=== PATIENT | male | born 1955 | race Caucasian/White ===

== ENCOUNTER 2020-06-26 15:15 | Outpatient (REF) | payer OTHER, SELFPAY ==
[2020-06-26 16:59] LABS: Glucose Urine UA NEG (NEG); Leukocyte Esterase Urine TRACE (NEG); Nitrite Urine POS (NEG); Specific Gravity - Urine 1.025 (1.005-1.025); Urine Blood 1+ (NEG); Urine Ketones NEG (NEG); Urine Protein NEG (NEG-TRACE)
[2020-06-26 17:03] LABS: Appearance Urine HAZY; Color Urine YELLOW
[2020-06-26 17:11] LABS: Alanine Aminotransferase 12 U/L (0-40); Albumin Level 4.4 g/dL (3.5-5.0); Alkaline Phosphatase 83 U/L (39-117); Anion Gap 11 (12-20); Aspartate Amino Transferase 16 U/L (5-37); Bilirubin Total 1.1 mg/dL (0.0-1.0); Blood Urea Nitrogen 17 mg/dL (9-16); Calcium 8.9 mg/dL (8.4-10.2); Carbon Dioxide 30 mmol/L (22-29); Chloride 101 mmol/L (96-108); Estimated Glomerular Filt Rate > 60; Glucose Random 91 mg/dL (60-115); Potassium 3.9 mmol/l (3.3-5.1); Sodium 138 mmol/L (135-145); Total Protein 6.8 g/dL (6.5-8.0)
[2020-06-26 17:17] LABS: RBC Urine 0-2 /HPF (0)
[2020-06-26 17:18] LABS: Bacteria Urine 2+ /LPF; Squamous Epithelial Cell Urine TRACE /LPF
== END 2020-06-26 15:16 | disposition home or self-care (01) ==
LOC: HO.HMGCLDS 15:15
PROVIDERS: PCP Internal Medicine; Visit Provider Internal Medicine
DX: I87.2 Venous insufficiency (chronic) (peripheral) (principal); I10 Essential (primary) hypertension; I89.0 Lymphedema, not elsewhere classified; R30.0 Dysuria
CPT/HCPCS: 80048; 81001; 81003; 82040; 82247; 84075; 84155; 84450; 84460; 87086; 87186

== ENCOUNTER → 2020-09-01 14:15 | Outpatient (BNVA) | payer OTHER, SELFPAY | PROVIDERS: PCP Internal Medicine; Visit Provider Surgery Vascular Surgery | DX: Z76.89 Persons encountering health services in other specified circumstances (principal) ==

== ENCOUNTER 2020-09-16 12:46 | Outpatient (REF) | payer OTHER, SELFPAY ==
--- NOTE | 2020-09-16 12:49 | US_ITS ---
EXAMINATION: RIGHT and LEFT LOWER EXTREMITY VENOUS ULTRASOUND (Reflux Exam) CLINICAL INDICATION: leg pain and varicose veins. COMPARISON: None. TECHNIQUE: Color flow triplex imaging and compression Doppler was performed to evaluate both the deep and the superficial systems bilaterally. To evaluate the superficial system, the examination was performed in the upright position. Color-flow Doppler ultrasound and compression ultrasound were utilized. In addition, maneuvers were utilized to demonstrate reflux. FINDINGS: 1. DEEP VENOUS ULTRASOUND OF THE RIGHT LOWER EXTREMITY: Respiratory variation, normal compression and augmented flow are noted in the right common femoral vein as well as the right popliteal vein and there is no evidence of deep venous thrombosis at these locations. There is no evidence of reflux in the deep system in either the common femoral vein or the popliteal vein. There is no evidence of a Thomas's cyst. 2. SUPERFICIAL ULTRASOUND WITH DOPPLER OF RIGHT LOWER EXTREMITY: The right great saphenous vein at the saphenofemoral junction measures 7 mm, at the mid thigh 5 mm, nzegf-ric-pmqu 6 mm, uxlxc-szu-gvdb 4 mm, at mid calf 4 mm and at the ankle measures 4 mm. There is a 3.4 seconds reflux in the right greater saphenous vein at the mid calf. There is an accessory lateral greater saphenous vein that measures 3 mm and does not demonstrate reflux.. The right small saphenous vein measures 4 mm and shows no reflux. There are perforators in the mid thigh and calf that measure 2 mm and do not demonstrate reflux. There are varicosities in the calf that measures 3 to 4 mm and do not demonstrate reflux. 3. DEEP VENOUS ULTRASOUND OF THE LEFT LOWER EXTREMITY: Respiratory variation, normal compression and augmented flow are noted in the left common femoral vein as well as the left popliteal vein and there is no evidence of deep venous thrombosis at these locations. There is no evidence of reflux in the deep system in either the common femoral vein or the popliteal vein. . There is no evidence of a Thomas's cyst. 4. SUPERFICIAL ULTRASOUND WITH DOPPLER OF LEFT LOWER EXTREMITY: Left great saphenous vein at the saphenofemoral junction measures 7 mm, at the mid thigh 4 mm, auddd-hxy-ffwm 4 mm, injes-cig-wrry 3 mm, at mid calf for mm and at the ankle measures 3 mm. There is no reflux demonstrated in the left great saphenous vein. There is a medial accessory greater saphenous vein that measures 3 mm and does not demonstrate reflux. The left small saphenous vein measures 3-4 mm and shows no reflux. There are perforators in the calf that measures 3 to 4 mm and does not demonstrate reflux. There are varicosities in the thigh and calf measure 3 mm and do not demonstrate reflux. US/US venous duplex LE BI IMPRESSION: 1. No evidence of reflux or thrombus in the common femoral veins or popliteal veins bilaterally. 2. Right greater saphenous vein reflux in the mid calf measuring 3.4 seconds. No left greater saphenous vein reflux seen.
== END 2020-09-16 12:47 | disposition home or self-care (01) ==
LOC: HO.US 12:46
PROVIDERS: PCP Internal Medicine; Visit Provider Surgery Vascular Surgery
DX: I83.893 Varicose veins of bilateral lower extremities with other complications (principal); M79.662 Pain in left lower leg; M79.661 Pain in right lower leg
CPT/HCPCS: 93970

== ENCOUNTER → 2020-10-01 15:00 | Outpatient (BNVA) | payer OTHER, SELFPAY | PROVIDERS: PCP Internal Medicine; Visit Provider Surgery Vascular Surgery | DX: Z76.89 Persons encountering health services in other specified circumstances (principal) ==

== ENCOUNTER 2021-01-06 14:15 | Outpatient (REF) | payer OTHER, SELFPAY ==
[2021-01-06 16:45] LABS: Hemoglobin 14.2 g/dl (14.0-18.0); Mean Corpuscular HGB Conc 32.3 g/dl (31.0-36.0); Mean Corpuscular Hemoglobin 29.8 pg (27.0-33.0); Mean Corpuscular Volume 92.2 fL (80-98); Mean Platelet Volume 10.9 fL (9.4-12.4); Platelet Count 160 X10*3/uL (160-400); Red Blood Count 4.77 X10*6/uL (4.60-5.80); Red Cell Distribution Width 13.1 % (11.0-16.0); White Blood Count 4.7 X10*3/uL (4.8-10.8)
[2021-01-06 16:58] LABS: Appearance Urine CLEAR; Color Urine YELLOW; Glucose Urine UA NEG (NEG); Leukocyte Esterase Urine NEG (NEG); Nitrite Urine NEG (NEG); Urine Blood TRACE (NEG); Urine Ketones NEG (NEG); Urine Protein NEG (NEG-TRACE)
[2021-01-06 17:07] LABS: Alanine Aminotransferase 22 U/L (0-40); Albumin Level 3.9 g/dL (3.5-5.0); Alkaline Phosphatase 76 U/L (39-117); Anion Gap 15 (12-20); Aspartate Amino Transferase 25 U/L (5-37); Bilirubin Total 1.6 mg/dL (0.0-1.0); Blood Urea Nitrogen 10 mg/dL (9-16); Calcium 8.1 mg/dL (8.4-10.2); Carbon Dioxide 24 mmol/L (22-29); Chloride 104 mmol/L (96-108); Cholesterol 133 mg/dL; Estimated Glomerular Filt Rate > 60; Glucose Fasting 94 mg/dL (60-99); HDL Cholesterol 53 mg/dL; LDL Cholesterol Calculated 69 mg/dl; Potassium 3.7 mmol/L (3.3-5.1); Sodium 139 mmol/L (135-145); Total Protein 6.1 g/dL (6.5-8.0); Triglycerides 55 mg/dL
[2021-01-06 17:13] LABS: WBC Urine 0 /HPF (0-4)
== END 2021-01-06 14:16 | disposition home or self-care (01) ==
LOC: HO.HMGCLDS 14:15
PROVIDERS: PCP Internal Medicine; Visit Provider Internal Medicine
DX: Z00.00 Encounter for general adult medical examination without abnormal findings (principal); I10 Essential (primary) hypertension; I89.0 Lymphedema, not elsewhere classified
CPT/HCPCS: 36415; 80053; 80061; 81001; 85027

== ENCOUNTER 2022-04-04 13:49 | Outpatient (REF) | payer OTHER, MEDICARE, SELFPAY | END 2022-04-04 13:50 | disposition home or self-care (01) | LOC: HO.LNP 13:49 | PROVIDERS: Visit Provider Physician Assistant | DX: K61.1 Rectal abscess (principal) | CPT/HCPCS: 87071; 87205 ==

== ENCOUNTER 2022-04-18 12:35 | Outpatient (RCR) | payer OTHER, SELFPAY | END 2022-06-16 11:11 | disposition home or self-care (01) | LOC: HO.WCC 12:35 | PROVIDERS: PCP Internal Medicine; Visit Provider Physician Assistant | DX: L98.419 Non-pressure chronic ulcer of buttock with unspecified severity (principal); L30.9 Dermatitis, unspecified; I10 Essential (primary) hypertension; I73.9 Peripheral vascular disease, unspecified | CPT/HCPCS: 17250; 99212 ==

== ENCOUNTER 2022-04-28 12:24 | Outpatient (REF) | payer OTHER, SELFPAY | END 2022-04-28 12:25 | disposition home or self-care (01) | LOC: HO.LNP 12:24 | PROVIDERS: Visit Provider Internal Medicine | DX: N39.0 Urinary tract infection, site not specified (principal) | CPT/HCPCS: 87086; 87088; 87186 ==

== ENCOUNTER 2022-05-04 13:42 | Outpatient (REF) | payer OTHER, SELFPAY ==
[2022-05-04 17:12] LABS: Alanine Aminotransferase 19 U/L (0-40); Albumin Level 3.9 g/dL (3.5-5.0); Alkaline Phosphatase 78 U/L (39-117); Anion Gap 12 (12-20); Aspartate Amino Transferase 20 U/L (5-37); Bilirubin Total 1.4 mg/dL (0.0-1.0); Blood Urea Nitrogen 15 mg/dL (9-16); Calcium 8.4 mg/dL (8.4-10.2); Carbon Dioxide 29 mmol/L (22-29); Chloride 106 mmol/L (96-108); Cholesterol 142 mg/dL; Estimated Glomerular Filt Rate > 60; Glucose Fasting 104 mg/dL (60-99); HDL Cholesterol 52 mg/dL; LDL Cholesterol Calculated 79 mg/dl; Sodium 143 mmol/L (135-145); Total Protein 6.3 g/dL (6.5-8.0); Triglycerides 57 mg/dL
[2022-05-04 17:14] LABS: Appearance Urine Clear; Color Urine Yellow; Glucose Urine UA Negative (Negative); Leukocyte Esterase Urine Negative (Negative); Nitrite Urine Negative (Negative); Specific Gravity - Urine >= 1.030 (1.005-1.025); Urine Blood Small (1+) (Negative); Urine Ketones Negative (Negative); Urine Protein Negative (Neg-Trace)
[2022-05-04 17:24] LABS: TSH reflex Free T4 1.11 uIU/mL (0.32-4.0)
[2022-05-04 18:04] LABS: Hyaline Casts Urine 0-2 /LPF (0-2)
[2022-05-04 18:07] LABS: Bacteria Urine None Seen (None Seen); UACC Culture Trigger YES
== END 2022-05-04 13:43 | disposition home or self-care (01) ==
LOC: HO.HMGCLDS 13:42
PROVIDERS: PCP Internal Medicine; Visit Provider Internal Medicine
DX: E78.5 Hyperlipidemia, unspecified (principal); I10 Essential (primary) hypertension
CPT/HCPCS: 36415; 80053; 80061; 81001; 81003; 84443; 87086

== ENCOUNTER 2023-03-25 14:10 | Outpatient (REF) | payer OTHER, SELFPAY ==
[2023-03-25 15:14] LABS: Hematocrit 44.3 % (42.0-52.0); Hemoglobin 14.7 g/dl (14.0-18.0); Mean Corpuscular HGB Conc 33.2 g/dl (31.0-36.0); Mean Corpuscular Hemoglobin 30.8 pg (27.0-33.0); Mean Corpuscular Volume 92.9 fL (80.0-98.0); Mean Platelet Volume 11.3 fL (9.4-12.4); Platelet Count 163 X10*3/uL (160-400); Red Blood Count 4.77 X10*6/uL (4.60-5.80); Red Cell Distribution Width 13.1 % (11.0-16.0); White Blood Count 5.3 X10*3/uL (4.8-10.8)
[2023-03-25 15:26] LABS: Anion Gap 14 (12-20); Blood Urea Nitrogen 13 mg/dL (9-16); Carbon Dioxide 24 mmol/L (22-29); Chloride 109 mmol/L (96-108); Estimated Glomerular Filt Rate > 60; Glucose Random 101 mg/dL (60-115); Potassium 3.7 mmol/L (3.3-5.1); Sodium 143 mmol/L (135-145)
== END 2023-03-25 14:11 | disposition home or self-care (01) ==
LOC: HO.HMGCLDS 14:10
PROVIDERS: Internal Medicine; PCP Internal Medicine; Visit Provider Internal Medicine
DX: G62.9 Polyneuropathy, unspecified (principal); R19.7 Diarrhea, unspecified
CPT/HCPCS: 36415; 80048; 82607; 82746; 85027

== ENCOUNTER 2023-04-15 08:00 | Outpatient (REF) | payer OTHER, SELFPAY | END 2023-04-15 08:01 | disposition home or self-care (01) | LOC: HO.HMGCLNP 08:00 | PROVIDERS: PCP Internal Medicine; Visit Provider Internal Medicine | DX: R19.7 Diarrhea, unspecified (principal) | CPT/HCPCS: 87177; 87209 ==

== ENCOUNTER 2023-04-25 09:31 | Outpatient (AMB) | payer OTHER, SELFPAY ==
[2023-04-25 09:43] VITALS: BMI 40.0
--- NOTE | 2023-04-25 09:43 | A.OFFPC_ITS ---
Vital Signs 04/25/23 09:43 Height 6 ft Weight 295 lb BMI 40.0 Intake Visit Reasons: pre-op postate urology 05/02 Intake Note: Pt is here today for a pre op visit. Pt is having surgery on his prostate with DR. Bowens on 05/02/23. Allergies Sulfa (Sulfonamide Antibiotics) Allergy (Unknown, Verified 04/25/23 09:46) unknown paper tape Allergy (Mild, Uncoded 04/25/23 09:46) Rash Medication List - Last Reconciled 04/25/23 by Suzie Thomas MD aspirin (Adult Low Dose Aspirin) 81 mg PO DAILY atorvastatin 10 mg PO DAILY hydrochlorothiazide 12.5 mg PO QAM hydrocortisone 1% (Cortisone (hydrocortisone)) 1 appl topical BID PRN ketoconazole 2% 1 appl topical BID losartan 50 mg PO DAILY nystatin 1 appl topical BID tadalafil 5 mg PO DAILY Tobacco use date assessed: 04/25/23 Fall risk assessment: No Falls in past year Last assessed Fall Risk: 04/25/23 Dental Screening Dental Screen Date: 04/25/23 Did you have a dental visit in the last 12 months?: Yes Did you have a dental problem in the last 6 months where you did not have access to dental care?: No Was dental information given to patient?: Patient has dentist HPI pre-op postate urology 05/02 HPI Details Pt presents for preop prostate surgery. Pt c/o diarrhea for 2 months, watery up to 2 episodes a day. Patient denies any correlation of diarrhea with his diet. Denies hematochezia weight loss, abdominal pain nausea vomiting. He has been under lot of stress related to his apartment for the last few weeks. Hypertension hyperlipidemia are controlled on current medications [facility] Medical History Abnormal colonoscopy Annual physical exam Dysuria Foot pain, bilateral HTN (hypertension) Hyperlipidemia Lymphedema Obese Recurrent UTI Urethral stricture Venous insufficiency of both lower extremities Surgical History History of left hip replacement History of right hip replacement Family History Father Prostate cancer Mother HTN (hypertension) Diabetes Colon cancer Social History Housing: Apartment Alcohol intake: never Patient Tobacco Use Status: Never used Tobacco e-Cigarette/Vaping Use: Never Used service: No Current occupational status: employed Cognitive needs: No Hearing needs: No Vision needs: Yes Questionnaire Thrive Questionnaire Date Thrive assessed: 04/18/22 AUDIT C Alcohol Use Questionnaire (AUDIT-C) 1. How often do you have a drink containing alcohol?: Never 3. How often do you have six or more drinks on one occasion?: Never Total Score: 0 DARLENE-7 AMB Questionnaire DARLENE-7 Date DARLENE - 7 assessed: 04/18/22 Source: Developed by Drs. Rusty Brooks, Trish Mayorga, Puneet Reece and colleagues, with an educational keegan from [employer]. Review of Systems Const All systems reviewed & are unremarkable except as noted in HPI and below Reports no additional complaints Eyes Reports no additional complaints ENT Reports no additional complaints Card Reports no additional complaints Resp Reports no additional complaints GI Reports no additional complaints Reports no additional complaints Physical exam (Primary Care) BMI result Body Mass Index 40.0 Tobacco/Smoking Status: Tobacco use Status Tobacco use date assessed 04/25/23 04/25/23 09:47 Patient Tobacco Use Status Never used Tobacco 04/25/23 09:47 e-Cigarette/Vaping Use Never Used 04/25/23 09:43 Thrive Assessment: Date of Thrive Assessment Date Thrive assessed 04/18/22 04/25/23 09:43 Const General: no acute distress HENMT Head: Yes normal to inspection General nose exam: Normal external nose present Eyes General: appearance normal, both eyes and all related structures Neck Neck: Yes no lymphadenopathy and Yes supple Resp Effort & Inspection: normal respiratory effort Auscultation: clear to auscultation bilaterally Cardio Rhythm: regular rhythm Heart sounds: S1 normal heart sound present and S2 normal heart sound present GI Inspection: Yes normal to inspection Palpation (GI): Soft to palpation Percussion: Yes normal to percussion Auscultation: normal bowel sounds Assessment and Plan Assessment & Plan (1) Diarrhea: Code(s): R19.7 - Diarrhea, unspecified Plan: Obtain stool studies and blood work for celiac disease. Patient was advised to start taking Citrucel and probiotics. he requested referral to software trainer. He will postpone the surgery until cleared by GI (2) Hyperlipidemia: Code(s): E78.5 - Hyperlipidemia, unspecified Plan: Continue statin (3) HTN (hypertension): Code(s): I10 - Essential (primary) hypertension Plan: Continue current medications Orders: Orders Transglutaminase IgA Today R19.7 - Diarrhea, unspecified GI Panel Today R19.7 - Diarrhea, unspecified Leukocytes Stool Qualitative Today R19.7 - Diarrhea, unspecified Endomysial IgA rflx Titer Today R19.7 - Diarrhea, unspecified Immunoglobulins,IgG IgA IgM Today R19.7 - Diarrhea, unspecified CDiff Gene PCR Today R19.7 - Diarrhea, unspecified Referrals Gastroenterology Referral R19.7 - Diarrhea, unspecified Coding Level of Care Code Est Pt Level 3 (19393) Diagnoses Diarrhea R19.7 Hyperlipidemia E78.5 HTN (hypertension) I10
== END 2023-04-25 10:42 | disposition home or self-care (01) ==
PROVIDERS: PCP Internal Medicine; Visit Provider Internal Medicine
DX: R19.7 Diarrhea, unspecified (principal); E78.5 Hyperlipidemia, unspecified; I10 Essential (primary) hypertension
CPT/HCPCS: 99213

== ENCOUNTER 2023-05-02 11:02 | Outpatient (REF) | payer OTHER, SELFPAY ==
[2023-05-02 16:26] LABS: Appearance Urine Clear; Color Urine Yellow; Glucose Urine UA Negative (Negative); Leukocyte Esterase Urine Negative (Negative); Nitrite Urine Positive (Negative); PH 6.5 (5.0-9.0); UMIC TRIGGER UACC YES; Urine Blood Negative (Negative); Urine Ketones Negative (Negative); Urine Protein Negative (Neg-Trace)
[2023-05-02 16:40] LABS: Bacteria Urine None Seen (None Seen); Hyaline Casts Urine 0-2 /LPF (0-2); RBC Urine 0-2 /HPF (0-2); Squamous Epithelial Cell Urine 0-2 /HPF (0-2); UACC Culture Trigger YES; WBC Urine 0-5 /HPF (0-5)
== END 2023-05-02 11:03 | disposition home or self-care (01) ==
LOC: HO.HMGCLNP 11:02
PROVIDERS: PCP Internal Medicine; Visit Provider Internal Medicine
DX: N39.0 Urinary tract infection, site not specified (principal)
CPT/HCPCS: 81001; 87086

== ENCOUNTER 2023-05-05 10:56 | Outpatient (REF) | payer OTHER, SELFPAY ==
[2023-05-05 19:21] LABS: Leukocytes Stool Qualitative NEGATIVE (NEGATIVE)
[2023-05-06 11:56] LABS: Adenovirus F 40/41 Not Detected (Not Detect.); Astrovirus Not Detected (Not Detect.); Campylobacter Not Detected (Not Detect.); Cryptosporidium Not Detected (Not Detect.); Cyclospora cayetanensis Not Detected (Not Detect.); E. coli EAEC Not Detected (Not Detect.); E. coli EPEC Detected (Not Detect.); E. coli ETEC Not Detected (Not Detect.); E. coli STEC Not Detected (Not Detect.); Entamoeba histolytica Not Detected (Not Detect.); Giardia lamblia Not Detected (Not Detect.); Norovirus GI/GII Not Detected (Not Detect.); Plesiomonas shigelloides Not Detected (Not Detect.); Rotavirus A Not Detected (Not Detect.); Salmonella Not Detected (Not Detect.); Sapovirus Not Detected (Not Detect.); Shigella sp./EIEC Not Detected (Not Detect.); Vibrio Not Detected (Not Detect.); Vibrio Cholerae Not Detected (Not Detect.); Yersinia enterocolitica Not Detected (Not Detect.)
== END 2023-05-05 10:57 | disposition home or self-care (01) ==
LOC: HO.HMGCLNP 10:56
PROVIDERS: PCP Internal Medicine; Visit Provider Internal Medicine
DX: R19.7 Diarrhea, unspecified (principal)
CPT/HCPCS: 87507; 89055

== ENCOUNTER 2023-07-08 09:10 | Outpatient (AMB) | payer OTHER, SELFPAY ==
[2023-07-08 09:48] VITALS: BP 130/70; PULSE 78; O2SAT 95; BMI 40.8
--- NOTE | 2023-07-08 09:48 | AM.OFFWIN_ITS ---
Intake Vital Signs 07/08/23 09:48 Height 6 ft Weight 136.531 kg BMI 40.8 BP 130/70 Blood Pressure Location Lt brachial Position Sitting Pulse 78 Pulse Source Pulse Oximeter Pulse Oximetry (%) 95 Oxygen Delivery Method Room Air Intake Visit Reasons: EP, UTI? Patient Tobacco Use Status: Never used Tobacco Allergies Sulfa (Sulfonamide Antibiotics) Allergy (Unknown, Verified 07/08/23 09:49) unknown paper tape Allergy (Mild, Uncoded 07/08/23 09:49) Rash HPI HPI Comments History of Present Illness Details 0948 67-year-old male history obesity, lymphe susy, hyperlipidemia, hypertension, dysuria, venous insufficiency bilaterally presenting to the clinic for evaluation of Physical exam Likely UTI versus cystitis. Unlikely pyelonephritis, obstructing uropathy. Other differentials include BPH. No signs of sepsis Plan urine. Urine showing Educated patient on diagnosis and treatment plan, answered all question, patient verbalizes understanding. At this time patient will be discharged home, advised to return with new or worsening symptoms. Educated on worrisome signs and symptoms and when to return. At this time I feel comfortable discharge home. [facility] Medical History Foot pain, bilateral Abnormal colonoscopy Hyperlipidemia Annual physical exam Dysuria Urethral stricture Recurrent UTI Obese HTN (hypertension) Lymphedema Venous insufficiency of both lower extremities Surgical History History of left hip replacement History of right hip replacement Family History Father Prostate cancer Mother HTN (hypertension) Diabetes Colon cancer Social History Housing: Apartment Alcohol intake: never Patient Tobacco Use Status: Never used Tobacco e-Cigarette/Vaping Use: Never Used service: No Current occupational status: employed Cognitive needs: No Hearing needs: No Vision needs: Yes Review of Systems Const Details: Constitutional : No Weight loss, No Fever, No Chills, No Fatigue, No Malaise ENT/Mouth : No sore throat, No Rhinorrhea Eyes: No Eye Pain, No Swelling, No Redness Cardiovascular : No Chest Pain, No SOB, No Dyspnea on Exertion, No Orthopnea, No Edema, No Palpitations Respiratory : No Cough, No Sputum, No Wheezing Gastrointestinal : No Nausea, No Vomiting, No Diarrhea, No Constipation, No abdominal Pain, No Hematochezia, No Melena Genitourinary : + Dysuria, + Urinary Frequency, No Hematuria, Musculoskeletal : No joint pain, No Myalgias, No Joint Swelling Skin : No Skin Lesions, No rash Neuro : No Weakness, No Numbness, No Dizziness, No Headache Psych : No Anxiety/Panic, No Depression All other systems reviewed and are negative All systems reviewed & are unremarkable except as noted in HPI and below Physical Exam Vital Signs: Vital signs stable Appearance: Alert.? Oriented X3.? No acute distress.? Head: Normocephalic, atraumatic, no step-offs or deformities Eyes: Pupils equal, round and reactive to light.? ENT: Pharynx normal.? Neck: Normal inspection.? Neck supple.? CVS: Normal heart rate and rhythm.? Pulses normal.? Respiratory: No respiratory distress.? Breath sounds normal.? Abdomen: Soft and nontender.? Skin: Skin warm and dry.? Normal skin color.? Normal skin turgor.? Extremities: No lower extremity edema.? No calf ttp. 5/5 strength to bilateral upper and lower extremities Back: No midline tenderness, no C-spine tenderness, full range of motion, no CVA tenderness bilaterally Neuro: Oriented X 3.? No motor deficit.? No sensory deficit. CN 2-12 intact Coding
--- NOTE | 2023-07-08 09:48 | MHC.OFFWIV ---
Intake Vital Signs 07/08/23 09:48 Height 6 ft Weight 136.531 kg BMI 40.8 BP 130/70 Blood Pressure Location Lt brachial Position Sitting Pulse 78 Pulse Source Pulse Oximeter Pulse Oximetry (%) 95 Oxygen Delivery Method Room Air Intake Visit Reasons: EP, UTI? Intake Note: pt is here today for uti, urgency and burning upon urination Patient Tobacco Use Status: Never used Tobacco Allergies Sulfa (Sulfonamide Antibiotics) Allergy (Unknown, Verified 07/08/23 09:49) unknown paper tape Allergy (Mild, Uncoded 07/08/23 09:49) Rash Do you need a note to return to daycare/school/sports/work: No HPI HPI Comments History of Present Illness Details 0951 67-year-old male history obesity, lymphedema, hyperlipidemia, hypertension, dysuria, venous insufficiency bilaterally presenting to the clinic for evaluation of urinary frequency, urgency, dysuria ongoing for the past few days. History of urinary infections in the past. Patient denies fevers, chills, flank pain, nausea, vomiting, abdominal pain, chest pain, shortness of breath, weakness. Patient being followed by Dr. Bowens Urology and is seeing him soon to have a procedure done to recurrent UTIs Physical exam benign Likely UTI versus cystitis. Unlikely pyelonephritis, obstructing uropathy. Other differentials include BPH, kidney stone. No signs of sepsis Plan urine. Urine showing leukocyte esterases will treat for UTI Educated patient on diagnosis and treatment plan, answered all question, patient verbalizes understanding. At this time patient will be discharged home, advised to return with new or worsening symptoms. Educated on worrisome signs and symptoms and when to return. At this time I feel comfortable discharge home. [facility] Medical History Foot pain, bilateral Abnormal colonoscopy Hyperlipidemia Annual physical exam Dysuria Urethral stricture Recurrent UTI Obese HTN (hypertension) Lymphedema Venous insufficiency of both lower extremities Surgical History History of left hip replacement History of right hip replacement Family History Father Prostate cancer Mother HTN (hypertension) Diabetes Colon cancer Social History Housing: Apartment Alcohol intake: never Patient Tobacco Use Status: Never used Tobacco e-Cigarette/Vaping Use: Never Used service: No Current occupational status: employed Cognitive needs: No Hearing needs: No Vision needs: Yes Review of Systems Const Details: Constitutional : No Weight loss, No Fever, No Chills, No Fatigue, No Malaise ENT/Mouth : No sore throat, No Rhinorrhea Eyes: No Eye Pain, No Swelling, No Redness Cardiovascular : No Chest Pain, No SOB, No Dyspnea on Exertion, No Orthopnea, No Edema, No Palpitations Respiratory : No Cough, No Sputum, No Wheezing Gastrointestinal : No Nausea, No Vomiting, No Diarrhea, No Constipation, No abdominal Pain, No Hematochezia, No Melena Genitourinary : + Dysuria, + Urinary Frequency, No Hematuria, Musculoskeletal : No joint pain, No Myalgias, No Joint Swelling Skin : No Skin Lesions, No rash Neuro : No Weakness, No Numbness, No Dizziness, No Headache Psych : No Anxiety/Panic, No Depression All other systems reviewed and are negative All systems reviewed & are unremarkable except as noted in HPI and below Physical Exam Vital Signs: Last Vital Signs Pulse 78 07/08/23 09:48 BP 130/70 07/08/23 09:48 Pulse Ox 95 07/08/23 09:48 Oxygen Delivery Method Room Air 07/08/23 09:48 BMI result Body Mass Index 40.8 vss Appearance: Alert.? Oriented X3.? No acute distress.? Head: Normocephalic, atraumatic, no step-offs or deformities Eyes: Pupils equal, round and reactive to light.? CVS: Normal heart rate and rhythm.? Pulses normal.? Respiratory: No respiratory distress.? Breath sounds normal.? Abdomen: Soft and nontender.? Skin: Skin warm and dry.? Normal skin color.? Normal skin turgor.? Extremities: No lower extremity edema.? No calf ttp. 5/5 strength to bilateral upper and lower extremities Back: No CVA tenderness bilaterally Neuro: Oriented X 3.? No motor deficit.? No sensory deficit. CN 2-12 intact Assessment & Plan Assessment & Plan (1) Acute UTI: Code(s): N39.0 - Urinary tract infection, site not specified Plan Take your medications as prescribed. If you were prescribed antibiotics today, it is important that you take your medication to their entirety, do not skip any doses, do not finish them early. Follow-up with your primary care provider this week. Return to the emergency department with new or worsening symptoms. Such as fevers, chills, chest pain, shortness of breath, nausea, vomiting, dizziness, headache, vision changes, lethargy In case of emergency call 911 Coding Level of Care Code Est Pt Level 3 (58955) Diagnoses Acute UTI N39.0
== END 2023-07-08 14:56 | disposition home or self-care (01) ==
PROVIDERS: PCP Internal Medicine; Visit Provider Physician Assistant
DX: N39.0 Urinary tract infection, site not specified (principal); R30.0 Dysuria
CPT/HCPCS: 81003; 99051; 99213

== ENCOUNTER 2023-07-29 09:05 | Outpatient (AMB) | payer OTHER, SELFPAY ==
[2023-07-29 09:11] VITALS: BP 110/64; PULSE 82; TEMP 36.8; O2SAT 94; BMI 40.3
--- NOTE | 2023-07-29 09:11 | MHC.OFFWIV ---
Intake Vital Signs 07/29/23 09:11 Height 6 ft Weight 297 lb BMI 40.3 BP 110/64 Blood Pressure Location Lt brachial Position Sitting Pulse 82 Pulse Source Pulse Oximeter Temp 98.2 F Temp Source Oral Pulse Oximetry (%) 94 Oxygen Delivery Method Room Air Intake Visit Reasons: EP, urgency and burning with urination Intake Note: Pt is here today c/o urgency and burning upon urination Patient Tobacco Use Status: Never used Tobacco Allergies Sulfa (Sulfonamide Antibiotics) Allergy (Unknown, Verified 07/29/23 09:23) unknown paper tape Allergy (Mild, Uncoded 07/29/23 09:23) Rash HPI HPI Comments History of Present Illness Details This is a 67-year-old male with a past medical history of BPH and urethral stricture currently followed by Dr. Bowens in urology presenting for evaluation of dysuria and urinary frequency that he has had over the past 3 days. Patient states he was seen approximately 1 month ago for similar symptoms, was prescribed Cipro which Initiallyresolved his symptoms however his symptoms recurred approximately 3 days ago. Patient denies having any fevers, chills, penile discharge, back pain or flank pain. [facility] Medical History Foot pain, bilateral Abnormal colonoscopy Hyperlipidemia Annual physical exam Dysuria Urethral stricture Recurrent UTI Obese HTN (hypertension) Lymphedema Venous insufficiency of both lower extremities Surgical History History of left hip replacement History of right hip replacement Family History Father Prostate cancer Mother HTN (hypertension) Diabetes Colon cancer Social History Housing: Apartment Alcohol intake: never Patient Tobacco Use Status: Never used Tobacco e-Cigarette/Vaping Use: Never Used service: No Current occupational status: employed Cognitive needs: No Hearing needs: No Vision needs: Yes Review of Systems Const All systems reviewed & are unremarkable except as noted in HPI and below Denies chills, Denies fever(s) and Denies night sweats GI Reports no additional complaints Reports no additional complaints, Denies hematuria, Denies oliguria, Reports difficulty urinating, Reports dysuria and Reports urinary frequency Physical Exam Vital Signs: BMI result Body Mass Index 40.3 patient is afebrile Const General: cooperative, comfortable, no acute distress and well developed Nutritional Appearance: overweight Orientation/consciousness: patient oriented x3 Limitations: no limitations Cardio Rate: regular rate Rhythm: regular rhythm GI Palpation (GI): Soft to palpation, nontender, no guarding and Other GI palpation findings present (no CVAT bilaterally, no suprapubic tenderness or guarding, no flank pain) Auscultation: normal bowel sounds Skin General skin exam: no rashes or lesions noted Neuro General: patient oriented x3 Psych Appearance: grossly normal Mental Status: mental status grossly normal Insight: Good insight present (Psych) Judgement: Good judgement present (Psych) Results AMB Urinalysis, Automated UA Leukoctes 125 Sanya/uL Last Edit by Erica Brown CMA on 07/29/23 09:22 UA Nitrite Negative Last Edit by Erica Brown CMA on 07/29/23 09:22 UA Urobilinogen 0.2 mg/dL Last Edit by Erica Brown CMA on 07/29/23 09:22 UA Protein 0 mg/dL Last Edit by Erica Brown CMA on 07/29/23 09:22 UA pH 6.0 Last Edit by Erica Brown CMA on 07/29/23 09:22 UA Blood 25 Arron/uL Last Edit by Erica Brown CMA on 07/29/23 09:22 UA Specific [place] 1.025 Last Edit by Erica Brown CMA on 07/29/23 09:22 UA Ketone Negative Last Edit by Erica Brown CMA on 07/29/23 09:22 UA Bilirubin 0 mg/dL Last Edit by Erica Brown CMA on 07/29/23 09:22 UA Glucose 0 mg/dL Last Edit by Erica Brown CMA on 07/29/23 09:22 Results Reviewed Results Reviewed: urinalysis reviewed with patient +leukocytes +hematuria Assessment & Plan Assessment & Plan (1) Urinary frequency: Code(s): R35.0 - Frequency of micturition Plan: Antibiotic therapy will be prescribed and a urine culture will be sent for further evaluation of his recurrent symptoms. Orders: Orders AMB Urinalysis Automated Today Z13.9 - Encounter for screening, unspecified Urine Culture Today R35.0 - Frequency of micturition Medications: New cephalexin 500 mg PO Q8H 21 caps 0RF Coding Level of Care Code Est Pt Level 3 (46278) Diagnoses Urinary frequency R35.0 Time Spent (min) 20
== END 2023-07-29 09:41 | disposition home or self-care (01) ==
PROVIDERS: PCP Internal Medicine; Visit Provider Physician Assistant
DX: R35.0 Frequency of micturition (principal)
CPT/HCPCS: 81003; 99051; 99213

== ENCOUNTER 2023-07-29 09:39 | Outpatient (REF) | payer OTHER, SELFPAY | END 2023-07-29 09:40 | disposition home or self-care (01) | LOC: HO.LAB 09:39 | PROVIDERS: Visit Provider Physician Assistant | DX: R35.0 Frequency of micturition (principal) | CPT/HCPCS: 87086; 87088; 87186 ==

== ENCOUNTER 2023-09-02 09:06 | Outpatient (AMB) | payer OTHER, SELFPAY ==
--- NOTE | 2023-09-02 09:35 | MHC.OFFWIV ---
Intake Vital Signs 09/02/23 09:39 Weight 131.542 kg BP 118/72 Blood Pressure Location Rt brachial Position Sitting Pulse 68 Pulse Source Pulse Oximeter Temp 97.8 F Temp Source Oral Pulse Oximetry (%) 98 Oxygen Delivery Method Room Air Intake Visit Reasons: EP sore throat congestion Intake Note: Patient here for sore throat, runny nose and slight cough and has yellow mucus that has been present since last monday. Patient Tobacco Use Status: Never used Tobacco Allergies Sulfa (Sulfonamide Antibiotics) Allergy (Unknown, Verified 09/02/23 09:38) unknown paper tape Allergy (Mild, Uncoded 09/02/23 09:38) Rash Do you need a note to return to daycare/school/sports/work: No HPI HPI Comments History of Present Illness Details 68-year-old male history of recurrent UTIs, hypertension, obesity, lymphedema presents to the clinic for sick visit patient reporting fatigue, malaise, myalgias, rhinorrhea, productive cough of yellow/thick sputum, sore throat that started last Monday and has not been improving. 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 Denies chest pain, shortness of breath, fevers, chills, changes in voice, difficulty breathing, nausea, vomiting, abdominal pain. Physical examination benign History and physical exam concerning for bronchitis due to length of symptoms versus viral illness versus flu versus COVID versus RSV. Unlikely pulmonary embolism, ACS, dissection, retropharyngeal abscess, peritonsillar abscess, epiglottitis or threat airway Plan at this time antibiotics, prednisone and inhaler. Educated patient on diagnosis and treatment plan, answered all question, patient verbalizes understanding. At this time patient will be discharged home, advised to return with new or worsening symptoms. Educated on worrisome signs and symptoms and when to return. At this time I feel comfortable discharge home. [facility], [facility] Medical History Foot pain, bilateral Abnormal colonoscopy Hyperlipidemia Annual physical exam Dysuria Urethral stricture Recurrent UTI Obese HTN (hypertension) Lymphedema Venous insufficiency of both lower extremities Surgical History History of left hip replacement History of right hip replacement Family History Father Prostate cancer Mother HTN (hypertension) Diabetes Colon cancer Social History Housing: Apartment Alcohol intake: never Patient Tobacco Use Status: Never used Tobacco e-Cigarette/Vaping Use: Never Used service: No Current occupational status: employed Cognitive needs: No Hearing needs: No Vision needs: Yes Review of Systems Const Details: Constitutional : No Weight loss, No Fever, No Chills, + Fatigue, + Malaise ENT/Mouth : +No sore throat, + Rhinorrhea Eyes: No Eye Pain, No Swelling, No Redness Cardiovascular : No Chest Pain, No SOB, No Dyspnea on Exertion, No Orthopnea, No Edema, No Palpitations Respiratory : + Cough, +Sputum, No Wheezing Gastrointestinal : No Nausea, No Vomiting, No Diarrhea, No Constipation, No abdominal Pain, No Hematochezia, No Melena Genitourinary : No Dysuria, No Urinary Frequency, No Hematuria, Musculoskeletal : No joint pain, No Myalgias, No Joint Swelling Skin : No Skin Lesions, No rash Neuro : No Weakness, No Numbness, No Dizziness, No Headache Psych : No Anxiety/Panic, No Depression Heme/Lymph: No Bruising, No Bleeding,No Lymphadenopathy Endocrine : No Polyuria, No Polydipsia All other systems reviewed and are negative All systems reviewed & are unremarkable except as noted in HPI and below Physical Exam Vital Signs: Last Vital Signs Temp 97.8 F 09/02/23 09:39 Pulse 68 09/02/23 09:39 BP 118/72 09/02/23 09:39 Pulse Ox 98 09/02/23 09:39 Oxygen Delivery Method Room Air 09/02/23 09:39 Vital signs stable Appearance: Alert.? Oriented X3.? No acute distress.? Head: Normocephalic, atraumatic, no step-offs or deformities Eyes: Pupils equal, round and reactive to light.? ENT: Pharynx normal.? Neck: Normal inspection.? Neck supple.? CVS: Normal heart rate and rhythm.? Pulses normal.? Respiratory: No respiratory distress.? Breath sounds normal.? Abdomen: Soft and nontender.? Skin: Skin warm and dry.? Normal skin color.? Normal skin turgor.? Extremities: No lower extremity edema.? No calf ttp. 5/5 strength to bilateral upper and lower extremities Back: No midline tenderness, no C-spine tenderness, full range of motion, no CVA tenderness bilaterally Neuro: Oriented X 3.? No motor deficit.? No sensory deficit. CN 2-12 intact Assessment & Plan Assessment & Plan (1) Bronchitis: Code(s): J40 - Bronchitis, not specified as acute or chronic Plan Take your medications as prescribed. If you were prescribed antibiotics today, it is important that you take your medication to their entirety, do not skip any doses, do not finish them early. Follow-up with your primary care provider this week. Return to the emergency department with new or worsening symptoms. Such as fevers, chills, chest pain, shortness of breath, nausea, vomiting, dizziness, headache, vision changes, lethargy In case of emergency call 911 Orders: Orders SARS-CoV2/FLU/RSV Today B34.9 - Viral infection, unspecified Medications: New albuterol sulfate 90 mcg/actuation 2 puffs inhalation Q6H PRN 6.7 grams 0RF shortness of breath or wheezing doxycycline hyclate 100 mg PO BID 7 days 14 caps 0RF prednisone 20 mg PO DAILY 5 days 5 tabs 0RF Coding Level of Care Code Est Pt Level 3 (99333) Diagnoses Bronchitis J40
[2023-09-02 09:39] VITALS: BP 118/72; PULSE 68; TEMP 36.6; O2SAT 98
== END 2023-09-02 11:08 | disposition home or self-care (01) ==
PROVIDERS: PCP Internal Medicine; Visit Provider Physician Assistant
DX: J40 Bronchitis, not specified as acute or chronic (principal); J02.9 Acute pharyngitis, unspecified
CPT/HCPCS: 87880; 99051; 99213

== ENCOUNTER 2023-09-02 10:52 | Outpatient (REF) | payer OTHER, SELFPAY ==
[2023-09-02 11:44] LABS: Influenza A PCR NEGATIVE (Negative); Influenza B PCR NEGATIVE (Negative); Resp Syncy Virus RNA Qual PCR NEGATIVE (Negative); SARS COV2 PCR INHOUSE NEGATIVE (Negative)
== END 2023-09-02 10:53 | disposition home or self-care (01) ==
LOC: HO.HMGCLNP 10:52
PROVIDERS: Visit Provider Physician Assistant
DX: Z11.52 Encounter for screening for COVID-19 (principal); B34.9 Viral infection, unspecified; Z20.822 Contact with and (suspected) exposure to COVID-19
CPT/HCPCS: 0241U

== ENCOUNTER 2023-09-15 08:12 | Outpatient (AMB) | payer OTHER, SELFPAY ==
[2023-09-15 08:29] VITALS: BP 130/72; PULSE 84; TEMP 36.8; O2SAT 95; BMI 39.9
--- NOTE | 2023-09-15 08:29 | AM.OFFWIN_ITS ---
Intake Vital Signs 09/15/23 08:29 Height 6 ft Weight 294 lb 6 oz BMI 39.9 BP 130/72 Blood Pressure Location Lt brachial Position Sitting Pulse 84 Pulse Source Pulse Oximeter Temp 98.3 F Temp Source Oral Pulse Oximetry (%) 95 Oxygen Delivery Method Room Air Intake Visit Reasons: EP Cough, Stuffy/Runny nose (masked) Intake Note: pt is here for c/o cough, stuffy/runny nose Patient Tobacco Use Status: Never used Tobacco Allergies Sulfa (Sulfonamide Antibiotics) Allergy (Unknown, Verified 09/15/23 08:30) unknown paper tape Allergy (Mild, Uncoded 09/02/23 09:38) Rash Do you need a note to return to daycare/school/sports/work: Yes HPI HPI Comments History of Present Illness Details He presents for cold symptoms Was seen 09/02 and negative flu, rsv and covid as well as strep Given doxy and prednisone Took both of those completely and felt better Started again 3 days ago congestion, st, swollen glands in neck, cough with no phlegm He tried OTC Clorcidin without relief He denies fever or chills He said fatigue without body aches PFSH Medical History Foot pain, bilateral Abnormal colonoscopy Hyperlipidemia Annual physical exam Dysuria Urethral stricture Recurrent UTI Obese HTN (hypertension) Lymphedema Venous insufficiency of both lower extremities Surgical History History of left hip replacement History of right hip replacement Family History Father Prostate cancer Mother HTN (hypertension) Diabetes Colon cancer Social History Housing: Apartment Alcohol intake: never Patient Tobacco Use Status: Never used Tobacco e-Cigarette/Vaping Use: Never Used service: No Current occupational status: employed Cognitive needs: No Hearing needs: No Vision needs: Yes Review of Systems Const Denies body aches, Denies chills, Reports fatigue and Denies fever(s) Eyes Denies blurry vision ENT Denies dizziness, Denies otalgia, Reports nasal discharge, Denies sore throat (sore lymph nodes) and Denies throat swelling Card Denies chest pain, Denies syncope, Denies rapid heart rate and Denies dyspnea Resp Reports cough and Denies dyspnea Musc Denies myalgias Neuro Denies dizziness, Denies syncope and Denies focal weakness Endo Reports fatigue Aller/Immun Denies throat swelling Physical Exam Vital Signs: Last Vital Signs Temp 98.3 F 09/15/23 08:29 Pulse 84 09/15/23 08:29 BP 130/72 09/15/23 08:29 Pulse Ox 95 09/15/23 08:29 Oxygen Delivery Method Room Air 09/15/23 08:29 BMI result Body Mass Index 39.9 General: Non-toxic, NAD. Speaking full sentences. Skin: Warm dry throughout Eye: EOMI HENT: Airway patent. Uvula midline. No pharyngeal erythema or edema. 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 Bilateral canals clear. TM non-erythematous, non-bulging. No TM perforation or hemotympanum noted. Respiratory: CTA bilaterally. No wheezes, rales or rhonchi Cardiac: RRR. No murmur MSK: Full ROM extremities. Neurology: A/O. No aphasia or facial droop. Gait without abnormality Psych: Good mood and affect Assessment & Plan Assessment & Plan (1) Cough: Code(s): R05.9 - Cough, unspecified Qualifiers: Cough type: acute Qualified Code(s): R05.1 - Acute cough Plan: Patient seen and evaluated. Lungs CTA; no rales Discussed importance of covid test and he will get one [facility] Will call if + ana Santana for couhg F/U with PCP Worsening symptoms discussed to go to ED Patient gave verbal understanding and had no additional questions or concerns at time of discharge All questions answered Orders: Orders BinaxNOW Covid-19 Ag Today R05.9 - Cough, unspecified Medications: New benzonatate 200 mg PO BID-TID PRN 14 caps 0RF cough R05.9 - Cough, unspecified Coding Level of Care Code Est Pt Level 3 (44544) Diagnoses Acute cough R05.1 Cough type: acute
== END 2023-09-15 09:00 | disposition home or self-care (01) ==
PROVIDERS: PCP Internal Medicine; Visit Provider Physician Assistant
DX: R05.1 Acute cough (principal)
CPT/HCPCS: 99213

== ENCOUNTER 2023-09-15 08:51 | Outpatient (REF) | payer OTHER, SELFPAY ==
[2023-09-15 09:15] LABS: Binax Internal Control QC Valid; Binax Now Covid-19 Ag Negative (Negative); Binax Performed by: PAULP
== END 2023-09-15 08:52 | disposition home or self-care (01) ==
LOC: HO.HMGCLDS 08:51
PROVIDERS: PCP Internal Medicine; Visit Provider Physician Assistant
DX: Z11.52 Encounter for screening for COVID-19 (principal); R05.9 Cough, unspecified
CPT/HCPCS: 87811

== ENCOUNTER 2023-09-26 07:56 | Outpatient (AMB) | payer OTHER, SELFPAY ==
--- NOTE | 2023-09-26 08:03 | MHC.PC.OV ---
Vital Signs 09/26/23 08:04 Weight 297 lb BP 122/68 Blood Pressure Location Rt brachial Position Sitting Pulse 82 Pulse Source Pulse Oximeter Pulse Oximetry (%) 97 Oxygen Delivery Method Room Air Intake Visit Reasons: cough/cold ok per Intake Note: Patient here for cough, chills, fatigue and headaches for about 1 month on and off. denies any fevers Allergies Sulfa (Sulfonamide Antibiotics) Allergy (Unknown, Verified 09/26/23 08:05) unknown paper tape Allergy (Mild, Uncoded 09/26/23 08:05) Rash Medication List - Last Reconciled 09/26/23 by Suzie Thomas MD albuterol sulfate 90 mcg/actuation 2 puffs inhalation Q6H PRN aspirin (Adult Low Dose Aspirin) 81 mg PO DAILY atorvastatin 10 mg PO DAILY azithromycin For 250 mg dose pack: take 500 mg today (day 1), then 250 mg for 4 days (days 2-5) PO benzonatate 200 mg PO BID-TID PRN famotidine (Pepcid) 40 mg PO BEDTIME hydrochlorothiazide 12.5 mg PO QAM hydrocortisone 1% (Cortisone (hydrocortisone)) 1 appl topical BID PRN ketoconazole 2% 1 appl topical BID losartan 50 mg PO DAILY nystatin 1 appl topical BID prednisone 20 mg PO DAILY 5 days tadalafil 5 mg PO DAILY triamcinolone acetonide 0.1% 1 appl topical DAILY Tobacco use date assessed: 09/26/23 Fall risk assessment: No Falls in past year Last assessed Fall Risk: 09/26/23 Dental Screening Dental Screen Date: 09/26/23 Did you have a dental visit in the last 12 months?: No Did you have a dental problem in the last 6 months where you did not have access to dental care?: No Was dental information given to patient?: Patient has dentist HPI cough/cold ok per HPI Details Pt presents c/o dry cough for 1 month, worse at night. Patient denies pleurisy fever chills night sweats but reports feeling tired. He was seen in urgent care 1 month ago treated with doxycycline and prednisone taper with temporary improvement of his symptoms. Patient denies GERD symptoms but reports chronic abdominal bloating with negative GI workup negative. [facility] Medical History Foot pain, bilateral Abnormal colonoscopy Hyperlipidemia Annual physical exam Dysuria Urethral stricture Recurrent UTI Obese HTN (hypertension) Lymphedema Venous insufficiency of both lower extremities Surgical History History of left hip replacement History of right hip replacement Family History Father Prostate cancer Mother HTN (hypertension) Diabetes Colon cancer Social History Housing: Apartment Alcohol intake: never Patient Tobacco Use Status: Never used Tobacco e-Cigarette/Vaping Use: Never Used service: No Current occupational status: employed Cognitive needs: No Hearing needs: No Vision needs: Yes Questionnaire Thrive Questionnaire Date Thrive assessed: 04/18/22 DARLENE-7 AMB Questionnaire DARLENE-7 Date DARLENE - 7 assessed: 04/18/22 Source: Developed by Drs. Rusty Brooks, Trish Mayorga, Puneet Reece and colleagues, with an educational keegan from [employer]. Review of Systems Const All systems reviewed & are unremarkable except as noted in HPI and below Reports no additional complaints Eyes Reports no additional complaints ENT Reports no additional complaints Card Reports no additional complaints Resp Reports no additional complaints GI Reports no additional complaints Reports no additional complaints Physical exam (Primary Care) Vital Signs: Last Vital Signs Pulse 82 09/26/23 08:04 BP 122/68 09/26/23 08:04 Pulse Ox 97 09/26/23 08:04 Oxygen Delivery Method Room Air 09/26/23 08:04 Tobacco/Smoking Status: Tobacco use Status Tobacco use date assessed 09/26/23 09/26/23 08:08 Patient Tobacco Use Status Never used Tobacco 09/26/23 08:03 e-Cigarette/Vaping Use Never Used 09/26/23 08:03 Thrive Assessment: Date of Thrive Assessment Date Thrive assessed 04/18/22 09/26/23 08:03 Const General: no acute distress HENMT Mouth: Normal oral and palatal mucosa present Neck Neck: Yes supple Resp Effort & Inspection: normal respiratory effort Auscultation: rhonchi right lower Cardio Rhythm: regular rhythm Heart sounds: S1 normal heart sound present and S2 normal heart sound present Assessment and Plan Assessment & Plan (1) Cough: Code(s): R05.9 - Cough, unspecified Qualifiers: Cough type: acute Qualified Code(s): R05.1 - Acute cough Plan: For persistent cough chest x-ray will be obtained Z-Dony and prednisone 20 mg for 5 days are prescribed and Pepcid 40 mg q.h.s. will be started. (2) HTN (hypertension): Code(s): I10 - Essential (primary) hypertension Plan: Continue current medications Medications: New famotidine (Pepcid) 40 mg PO BEDTIME 30 tabs 0RF azithromycin For 250 mg dose pack: take 500 mg today (day 1), then 250 mg for 4 days (days 2-5) PO 6 tabs 0RF prednisone 20 mg PO DAILY 5 days 5 tabs 0RF Refilled benzonatate 200 mg PO BID-TID PRN 14 caps 0RF cough R05.9 - Cough, unspecified Coding Level of Care Code Est Pt Level 3 (94630) Diagnoses Acute cough R05.1 Cough type: acute HTN (hypertension) I10
[2023-09-26 08:04] VITALS: BP 122/68; PULSE 82; O2SAT 97
== END 2023-09-26 09:00 | disposition home or self-care (01) ==
LOC: HO.HMGC 07:56
PROVIDERS: PCP Internal Medicine; Visit Provider Internal Medicine
DX: R05.1 Acute cough (principal); I10 Essential (primary) hypertension
CPT/HCPCS: 99213

== ENCOUNTER 2023-09-26 08:26 | Outpatient (REF) | payer OTHER, SELFPAY ==
--- NOTE | ~2023-09-26 | XR_ITS ---
EXAMINATION: XR CHEST CLINICAL INFORMATION: Cough, unspecified COMPARISON: None available. TECHNIQUE: 2 views of the chest were obtained. FINDINGS: No significant abnormality is noted involving the heart, lungs, mediastinum, bony thorax or soft tissues. The stomach is distended with air. Air is projected over the right upper quadrant, possibly within a dilated loop of colon. XR/XR chest 2V IMPRESSION: No acute cardiopulmonary disease. Suggestion of dilatation of bowel in the abdomen. KUB could be obtained for further evaluation.
== END 2023-09-26 08:27 | disposition home or self-care (01) ==
LOC: HO.HMGCX 08:26
PROVIDERS: PCP Internal Medicine; Visit Provider Internal Medicine
DX: R05.9 Cough, unspecified (principal)
CPT/HCPCS: 71046

== ENCOUNTER 2023-10-02 08:48 | Outpatient (AMB) | payer OTHER, SELFPAY ==
[2023-10-02 09:07] VITALS: BP 132/70; PULSE 71; TEMP 36.3; O2SAT 96; BMI 40.1
--- NOTE | 2023-10-02 09:07 | MHC.OFFWIV ---
Intake Vital Signs 10/02/23 09:07 Height 6 ft Weight 296 lb BMI 40.1 BP 132/70 Blood Pressure Location Lt brachial Position Sitting Pulse 71 Pulse Source Pulse Oximeter Temp 97.4 F Temp Source Temporal Artery Scan Pulse Oximetry (%) 96 Oxygen Delivery Method Room Air Intake Visit Reasons: EP cough 3 wks [id number] Intake Note: pt is here today for cough for 3 weeks Patient Tobacco Use Status: Never used Tobacco Allergies Sulfa (Sulfonamide Antibiotics) Allergy (Unknown, Verified 10/02/23 09:07) unknown paper tape Allergy (Mild, Uncoded 09/26/23 08:05) Rash Do you need a note to return to daycare/school/sports/work: No HPI HPI Comments History of Present Illness Details Patient presents to the walkin today for complaints of cough for last 3 weeks He has been evaluated at walk in previously and last week he saw pcp. Has taken abx X 2 full courses, most recent zpak prescribed 1 week ago. He has also been prescribed prednisone and tessalhayden lara States cough is a little better after recent visit with pcp but now he feels like the cough has changed from dry to having some clear mucous I want something to help bring it up Denies fevers, chest pain, shortness of breath, palpitations or worsening peripheral edema. [facility] Medical History Foot pain, bilateral Abnormal colonoscopy Hyperlipidemia Annual physical exam Dysuria Urethral stricture Recurrent UTI Obese HTN (hypertension) Lymphedema Venous insufficiency of both lower extremities Surgical History History of left hip replacement History of right hip replacement Family History Father Prostate cancer Mother HTN (hypertension) Diabetes Colon cancer Social History Housing: Apartment Alcohol intake: never Patient Tobacco Use Status: Never used Tobacco e-Cigarette/Vaping Use: Never Used service: No Current occupational status: employed Cognitive needs: No Hearing needs: No Vision needs: Yes Review of Systems Const All systems reviewed & are unremarkable except as noted in HPI and below Physical Exam Vital Signs: Last Vital Signs Temp 97.4 F 10/02/23 09:07 Pulse 71 10/02/23 09:07 BP 132/70 10/02/23 09:07 Pulse Ox 96 10/02/23 09:07 Oxygen Delivery Method Room Air 10/02/23 09:07 BMI result Body Mass Index 40.1 General: awake, alert, oriented. Answers questions appropriately. Fully engaged in examination. Skin: warm, dry, intact. HEENT: Normocephalic. Hearing intact. no lymphadenopathy Cardiac: External chest normal in appearance. bilateral peripheral edema Respiratory: LSCTAB. Resp eval and non-labored. Abdomen: without gross distension. MS: No obvious swelling or deformities. Neurological: Oriented to person, place, time and situation. Thought process intact. No gait abnormalities appreciated. Psychiatric: Appropriate mood and affect. Good judgment and insight. Results Reviewed Results Reviewed: 09/26/23 XR/XR chest 2V FINDINGS: No significant abnormality is noted involving the heart, lungs, mediastinum, bony thorax or soft tissues. The stomach is distended with air. Air is projected over the right upper quadrant, possibly within a dilated loop of colon. IMPRESSION: No acute cardiopulmonary disease. Suggestion of dilatation of bowel in the abdomen. KUB could be obtained for further evaluation. Assessment & Plan Assessment & Plan (1) Cough: Code(s): R05.9 - Cough, unspecified Qualifiers: Cough type: acute Qualified Code(s): R05.1 - Acute cough Plan Patient presented today for persistent cough 6days ago started azithromycin, prednisone and tessalon perles with some improvement in his symptoms Requesting expectorant to assist with bringing up the phlegm. Patient aware that this will exacerbate his cough, he still wants something to help break up the mucous and help cough it up. All questions and concerns answered, patient agrees with plan Follow up with pcp or return to walk in for any concerns. Medications: New guaifenesin 200 mg PO TID PRN 21 tabs 0RF cough Coding Level of Care Code Est Pt Level 4 (30748) Diagnoses Acute cough R05.1 Cough type: acute
== END 2023-10-02 09:50 | disposition home or self-care (01) ==
PROVIDERS: PCP Internal Medicine; Visit Provider Registered Nurse Emergency
DX: R05.1 Acute cough (principal)
CPT/HCPCS: 99213

== ENCOUNTER 2023-11-07 11:16 | Outpatient (AMB) | payer OTHER, SELFPAY ==
[2023-11-07 12:05] VITALS: BP 118/76; PULSE 65; O2SAT 97; BMI 38.0
--- NOTE | 2023-11-07 12:05 | A.OFFPC_ITS ---
Vital Signs 11/07/23 12:05 Height 6 ft Weight 280 lb BMI 38.0 BP 118/76 Blood Pressure Location Lt brachial Position Sitting Pulse 65 Pulse Source Pulse Oximeter Pulse Oximetry (%) 97 Oxygen Delivery Method Room Air Intake Visit Reasons: PE Intake Note: Pt is here today for PE. Allergies Sulfa (Sulfonamide Antibiotics) Allergy (Unknown, Verified 11/07/23 12:05) unknown paper tape Allergy (Mild, Uncoded 11/07/23 12:05) Rash Tobacco use date assessed: 11/07/23 Fall risk assessment: No Falls in past year Last assessed Fall Risk: 11/07/23 Dental Screening Dental Screen Date: 11/07/23 Did you have a dental visit in the last 12 months?: Yes Did you have a dental problem in the last 6 months where you did not have access to dental care?: No Was dental information given to patient?: Patient has dentist HPI PE HPI Details Patient presents for physical. He complains of increased urinary frequency and dysuria for 2 days. Patient denies fever chills abdominal pain. [facility] Medical History Foot pain, bilateral Abnormal colonoscopy Hyperlipidemia Annual physical exam Dysuria Urethral stricture Recurrent UTI Obese HTN (hypertension) Lymphedema Venous insufficiency of both lower extremities Surgical History History of left hip replacement History of right hip replacement Family History Father Prostate cancer Mother HTN (hypertension) Diabetes Colon cancer Social History Housing: Apartment Alcohol intake: never Patient Tobacco Use Status: Never used Tobacco e-Cigarette/Vaping Use: Never Used service: No Current occupational status: employed Cognitive needs: No Hearing needs: No Vision needs: Yes Questionnaire PHQ-9 Over the last 2 weeks, how often have you been bothered by any of the following problems? 1. Little interest or pleasure in doing things: not at all 2. Feeling down, depressed, or hopeless: not at all 3. Trouble falling or staying asleep, or sleeping too much: not at all 4. Feeling tired or having little energy: not at all 5. Poor appetite or overeating: not at all 6. Feeling bad about yourself - or that you are a failure or have let yourself or your family down: not at all 7. Trouble concentrating on things, such as reading the newspaper or watching television: not at all 8. Moving or speaking so slowly that other people could have noticed. Or the opposite - being so fidgety or restless that you have been moving around a lot more than usual: not at all 9. Thoughts that you would be better off or of hurting yourself in some way: not at all Total score: 0 Depression Screening Interpretation: Negative Depression Screening Done: Yes Source: Developed by Drs. Rusty Brooks, Trish Mayorga, Puneet Reece and colleagues, with an educational keegan from [employer]. Thrive Questionnaire Date Thrive assessed: 11/07/23 I am a: Patient What is your living situation today?: I have a steady place to live Within the past 12 months, did the food you bought not last and you didn't have the money to get more?: Never true Within the past 12 months, did you worry whether your food would run out before you got money to buy more?: Never true Do you have trouble paying for medicines?: No Do you have trouble getting transportation to medical appointments?: No Do you have trouble paying your heating and electricity bill?: No Do you have trouble taking care of your child, family member or friend?: No Do you have trouble with day-to-day activities such as bathing, preparing meals, shopping, managing finances, etc.?: No Are you currently unemployed and looking for a job?: No Are you interested in more education?: No Please select the resources that you would like help with: None Currently or been in a relationship where the following occur: no concerns reported THRIVE Score: 0 AUDIT C Alcohol Use Questionnaire (AUDIT-C) 1. How often do you have a drink containing alcohol?: Never 3. How often do you have six or more drinks on one occasion?: Never Total Score: 0 DARLENE-7 AMB Questionnaire DARLENE-7 Date DARLENE - 7 assessed: 11/07/23 Feeling nervous, anxious, or on edge: 0 = Not at all Not being able to stop or control worryin = Not at all Worrying too much about different things: 0 = Not at all Trouble relaxin = Not at all Being so restless that it is hard to sit still: 0 = Not at all Becoming easily annoyed or irritable: 0 = Not at all Feeling afraid as if something awful might happen: 0 = Not at all Total DARLENE-7 score (0-4 normal; 5-9 mild; 10-14 moderate; 15-21 severe): 0 Source: Developed by Drs. Rusty Brooks, Trish Mayorga, Puneet Reece and colleagues, with an educational keegan from [employer]. Review of Systems Const All systems reviewed & are unremarkable except as noted in HPI and below Reports no additional complaints Eyes Reports no additional complaints ENT Reports no additional complaints Card Reports no additional complaints Resp Reports no additional complaints GI Reports no additional complaints Reports no additional complaints Physical exam (Primary Care) Vital Signs: Last Vital Signs Pulse 65 11/07/23 12:05 BP 118/76 11/07/23 12:05 Pulse Ox 97 11/07/23 12:05 Oxygen Delivery Method Room Air 11/07/23 12:05 BMI result Body Mass Index 38.0 Tobacco/Smoking Status: Tobacco use Status Tobacco use date assessed 11/07/23 11/07/23 12:11 Patient Tobacco Use Status Never used Tobacco 11/07/23 12:11 e-Cigarette/Vaping Use Never Used 11/07/23 12:11 PHQ-9: PHQ-9 Score PHQ-9: Total score 0 11/07/23 12:25 Depression Screening Interpretation: Negative Thrive Assessment: Date of Thrive Assessment Date Thrive assessed 11/07/23 11/07/23 12:25 Currently or been in a relationship where the following occur: no concerns reported Const General: no acute distress HENMT Head: Yes normal to inspection Ears: hearing grossly normal bilaterally Face and sinus: Yes normal facial exam Throat: Yes posterior oropharynx normal Eyes General: appearance normal, both eyes and all related structures Neck Neck: Yes no lymphadenopathy and Yes supple Resp Effort & Inspection: normal respiratory effort Auscultation: clear to auscultation bilaterally Cardio Rhythm: regular rhythm Heart sounds: S1 normal heart sound present and S2 normal heart sound present GI Inspection: Yes normal to inspection Palpation (GI): Soft to palpation Percussion: Yes normal to percussion Auscultation: normal bowel sounds Results AMB Urinalysis, Automated UA Leukoctes 0 Sanya/uL Last Edit by HARIKA Eisenberg on 11/07/23 12:23 UA Nitrite Negative Last Edit by Claire Norwood [facility] on 11/07/23 12:23 UA Urobilinogen 0.2 mg/dL Last Edit by Claire Norwood Ross on 11/07/23 12: 23 UA Protein 15 mg/dL Last Edit by Claire Norwood [facility] on 11/07/23 12:23 +- Claire Norwood 11/07/23 12:23 UA pH 6.0 Last Edit by Claire Norwood Ross on 11/07/23 12:23 UA Blood 0 Arron/uL Last Edit by Claire Norwood Ross on 11/07/23 12:23 UA Specific [place] 1.025 Last Edit by Claire Norwood Ross on 11/07/23 12 :23 UA Ketone Negative Last Edit by Claire Norwood [facility] on 11/07/23 12:23 UA Bilirubin 0 mg/dL Last Edit by Claire Norwood Ross on 11/07/23 12:23 UA Glucose 0 mg/dL Last Edit by Claire Norwood [facility] on 11/07/23 12:23 Results Reviewed Results Reviewed: Laboratory Last Values Urine pH (Auto) 6.0 11/07/23 12:22 Specific [place] (Auto) 1.025 11/07/23 12:22 Urine Protein (Auto) 15 mg/dL 11/07/23 12:22 Glucose (UA)(Auto) 0 mg/dL 11/07/23 12:22 Urine Ketones (Auto) Negative 11/07/23 12:22 Urine Blood (Auto) 0 Arron/uL 11/07/23 12:22 Urine Nitrite (Auto) Negative 11/07/23 12:22 Urine Bilirubin (Auto) 0 mg/dL 11/07/23 12:22 Urine Urobilinogen (Auto) 0.2 mg/dL 11/07/23 12:22 Leukocyte Esterase (Auto) 0 Sanya/uL 11/07/23 12:22 Assessment and Plan Assessment & Plan (1) HTN (hypertension): Code(s): I10 - Essential (primary) hypertension Plan: Continue losartan and hydrochlorothiazide (2) Venous insufficiency of both lower extremities: Comment: Chronic lymphedema, follow-up with vascular surgeon Code(s): I87.2 - Venous insufficiency (chronic) (peripheral) (3) Hyperlipidemia: Code(s): E78.5 - Hyperlipidemia, unspecified Plan: Continue atorvastatin (4) Annual physical exam: Code(s): Z00.00 - Encounter for general adult medical examination without abnormal findings Plan: Well-balanced diet regular physical activity and weight loss discussed with the patient. He is up-to-date with colonoscopy. Follow-up in 6 months (5) Recurrent UTI: Code(s): N39.0 - Urinary tract infection, site not specified Plan: For recurrent UTIs patient follows up with [facility]. Macrobid as prescribed today for dysuria pending urine culture Orders: Orders AMB Urinalysis Automated Today Z13.9 - Encounter for screening, unspecified Complete Blood Count Auto Diff Today E78.5 - Hyperlipidemia, unspecified, I10 - Essential (primary) hypertension, I87.2 - Venous insufficiency (chronic) (peripheral), N39.0 - Urinary tract infection, site not specified, Z00.00 - Encounter for general adult medical examination without abnormal findings TSH reflex Free T4 Today E66.9 - Obesity, unspecified Comprehensive [facility] Panel Fast Today E78.5 - Hyperlipidemia, unspecified, I10 - Essential (primary) hypertension, I87.2 - Venous insufficiency (chronic) (peripheral), N39.0 - Urinary tract infection, site not specified, Z00.00 - Encounter for general adult medical examination without abnormal findings Lipid Panel Today E78.5 - Hyperlipidemia, unspecified, I10 - Essential (primary) hypertension, I87.2 - Venous insufficiency (chronic) (peripheral), N39.0 - Urinary tract infection, site not specified, Z00.00 - Encounter for general adult medical examination without abnormal findings Medications: New nitrofurantoin monohyd/m-cryst 100 mg (Macrobid) must administer with a meal/food 100 mg PO Q12H 7 days 14 caps 0RF Coding Level of Care Code Est Pt Prev Care >65y(39074) Diagnoses HTN (hypertension) I10 Venous insufficiency of both lower extremities I87.2 Hyperlipidemia E78.5 Annual physical exam Z00.00 Recurrent UTI N39.0
== END 2023-11-07 12:44 | disposition home or self-care (01) ==
PROVIDERS: PCP Internal Medicine; Visit Provider Internal Medicine
DX: Z00.00 Encounter for general adult medical examination without abnormal findings (principal); I10 Essential (primary) hypertension; I87.2 Venous insufficiency (chronic) (peripheral); E78.5 Hyperlipidemia, unspecified; N39.0 Urinary tract infection, site not specified
CPT/HCPCS: 81003; 99397

== ENCOUNTER 2023-11-07 12:45 | Outpatient (REF) | payer OTHER, SELFPAY ==
[2023-11-07 16:15] LABS: MANUAL DIFF FLAG NO
[2023-11-07 16:23] LABS: Basophils Absolute Auto 0.1 X10*3/uL (0.0-0.2); Basophils Percent Auto 1.2 % (0-2); Eosinophils Absolute Auto 0.2 X10*3/uL (0.0-0.4); Eosinophils Percent Auto 3.2 % (0-4); Hematocrit 49.2 % (42.0-52.0); Hemoglobin 15.9 g/dl (14.0-18.0); Imm Gran Abs Auto 0.02 X10*3/uL (0.00-0.03); Imm Gran Pct Auto 0.3 % (0.0-0.4); Lymphocytes Absolute Auto 1.3 X10*3/uL (1.2-4.9); Lymphocytes Percent Auto 20.9 % (20-40); Mean Corpuscular HGB Conc 32.3 g/dl (31.0-36.0); Mean Corpuscular Hemoglobin 30.6 pg (27.0-33.0); Mean Corpuscular Volume 94.8 fL (80.0-98.0); Mean Platelet Volume 12.2 fL (9.4-12.4); Monocytes Absolute Auto 0.6 X10*3/uL (0.1-1.2); Monocytes Percent Auto 9.5 % (2-11); Neutrophils Absolute Auto 3.9 x10*3/uL (2.0-8.3); Neutrophils Percent Auto 64.9 % (45-73); Platelet Count 149 X10*3/uL (160-400); Red Blood Count 5.19 X10*6/uL (4.60-5.80); Red Cell Distribution Width 13.9 % (11.0-16.0)
[2023-11-07 16:35] LABS: Alanine Aminotransferase 21 U/L (0-40); Albumin Level 4.1 g/dL (3.5-5.0); Alkaline Phosphatase 75 U/L (39-117); Anion Gap 10 (12-20); Aspartate Amino Transferase 21 U/L (5-37); Bilirubin Total 1.3 mg/dL (0.0-1.0); Blood Urea Nitrogen 14 mg/dL (9-16); Calcium 8.9 mg/dL (8.4-10.2); Carbon Dioxide 30 mmol/L (22-29); Chloride 107 mmol/L (96-108); Cholesterol 120 mg/dL (<200); Estimated Glomerular Filt Rate > 60; Glucose Fasting 98 mg/dL (60-99); HDL Cholesterol 57 mg/dL (>40); LDL Cholesterol Calculated 56 mg/dL (<100); Potassium 3.6 mmol/L (3.3-5.1); Sodium 143 mmol/L (135-145); Total Protein 6.7 g/dL (6.5-8.0); Triglycerides 39 mg/dL (<150)
[2023-11-07 16:54] LABS: TSH reflex Free T4 1.38 uIU/mL (0.32-4.0)
== END 2023-11-07 12:46 | disposition home or self-care (01) ==
LOC: HO.HMGCLDS 12:45
PROVIDERS: PCP Internal Medicine; Visit Provider Internal Medicine
DX: Z00.00 Encounter for general adult medical examination without abnormal findings (principal); E66.9 Obesity, unspecified; I10 Essential (primary) hypertension; I87.2 Venous insufficiency (chronic) (peripheral); E78.5 Hyperlipidemia, unspecified; N39.0 Urinary tract infection, site not specified
CPT/HCPCS: 36415; 80053; 80061; 84443; 85025

== ENCOUNTER 2023-11-07 15:41 | Outpatient (REF) | payer OTHER, SELFPAY | END 2023-11-07 15:42 | disposition home or self-care (01) | LOC: HO.LAB 15:41 | PROVIDERS: Visit Provider Internal Medicine | DX: R35.0 Frequency of micturition (principal); N39.0 Urinary tract infection, site not specified | CPT/HCPCS: 87086; 87088; 87186 ==

== ENCOUNTER 2024-04-06 09:04 | Outpatient (AMB) | payer OTHER, SELFPAY ==
[2024-04-06 09:07] VITALS: BP 114/64; PULSE 81; TEMP 36.9; O2SAT 93; BMI 41.6
--- NOTE | 2024-04-06 09:07 | AM.OFFWIN_ITS ---
Intake Vital Signs 04/06/24 09:07 Height 6 ft Weight 307 lb BMI 41.6 BP 114/64 Blood Pressure Location Rt brachial Position Sitting Pulse 81 Pulse Source Pulse Oximeter Temp 98.5 F Temp Source Oral Pulse Oximetry (%) 93 Oxygen Delivery Method Room Air Intake Visit Reasons: EP cough stuffy nose Intake Note: Pt is here today c/o cough and stuffy nose x3days Patient Tobacco Use Status: Never used Tobacco Allergies Sulfa (Sulfonamide Antibiotics) Allergy (Unknown, Verified 04/06/24 09:14) unknown paper tape Allergy (Mild, Uncoded 04/06/24 09:09) Rash Medication List - Last Reconciled 04/06/24 by Katherine Anderson, [employer]LECT[employer] aspirin (Adult Low Dose Aspirin) 81 mg PO DAILY atorvastatin 10 mg PO DAILY hydrochlorothiazide 12.5 mg PO QAM losartan 50 mg PO DAILY nystatin 1 appl topical BID tadalafil 5 mg PO DAILY triamcinolone acetonide 0.1% 1 appl topical DAILY HPI HPI Comments History of Present Illness Details 68-year-old male here today with chief c omplaints of a dry cough and runny nose. Reports that his symptoms started about 3 days ago. 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 He also wonders if there is any component of allergies as he recently was exposed to dust. He did try [id number] allergy medications x1 yesterday. Also admits a very mild sore throat. Awake alert NAD Sclera and conjunctiva clear bilat Nares scant discharge left, turbinates within normal limits, no sinus tenderness with palpation bilat Unable to see TM bilat due to cerumen MMM, pharynx WNL RRR LS CTAB Plan: Supportive care. Tessalon and Flonase. Okay to continue to use [id number]-[id number] antihistamines. If worsening of symptoms, or no resolution in 10 days advised to return to the office. This note is constructed using voice recognition software. While every effort has been made to ensure accuracy in human resources hr representative, still errors may have been included Sometimes, these errors may affect the content or meaning of the given sentence . [facility] Medical History Foot pain, bilateral Abnormal colonoscopy Hyperlipidemia Annual physical exam Dysuria Urethral stricture Recurrent UTI Obese HTN (hypertension) Lymphedema Venous insufficiency of both lower extremities Surgical History History of left hip replacement History of right hip replacement Family History Father Prostate cancer Mother HTN (hypertension) Diabetes Colon cancer Social History Housing: Apartment Alcohol intake: never Patient Tobacco Use Status: Never used Tobacco e-Cigarette/Vaping Use: Never Used service: No Current occupational status: employed Cognitive needs: No Hearing needs: No Vision needs: Yes Physical Exam Vital Signs: Last Vital Signs Temp 98.5 F 04/06/24 09:07 Pulse 81 04/06/24 09:07 BP 114/64 04/06/24 09:07 Pulse Ox 93 04/06/24 09:07 Oxygen Delivery Method Room Air 04/06/24 09:07 BMI result Body Mass Index 41.6 Assessment & Plan Assessment & Plan (1) Viral respiratory illness: Code(s): J98.8 - Other specified respiratory disorders; B97.89 - Other viral agents as the cause of diseases classified elsewhere Plan: . Medications: New fluticasone propionate 50 mcg/actuation administer into each nostril 1 spray intranasal BID 16 grams 0RF benzonatate 100 mg PO TID 10 days PRN 30 caps 1RF cough Coding Level of Care Code Est Pt Level 3 (71468) Diagnoses Viral respiratory illness J98.8; B97.89
== END 2024-04-06 09:54 | disposition home or self-care (01) ==
PROVIDERS: PCP Internal Medicine; Visit Provider Nurse Practitioner Family
DX: J98.8 Other specified respiratory disorders (principal); B97.89 Other viral agents as the cause of diseases classified elsewhere
CPT/HCPCS: 99213

== ENCOUNTER 2024-04-09 13:35 | Outpatient (AMB) | payer OTHER, SELFPAY ==
[2024-04-09 13:37] VITALS: BP 140/76; PULSE 78; TEMP 36.8; O2SAT 97; BMI 41.6
--- NOTE | 2024-04-09 13:37 | AM.OFFWIN_ITS ---
Intake Vital Signs 04/09/24 13:37 Height 6 ft Weight 307 lb BMI 41.6 BP 140/76 H Blood Pressure Location Lt brachial Position Sitting Pulse 78 Pulse Source Pulse Oximeter Temp 98.3 F Temp Source Oral Pulse Oximetry (%) 97 Oxygen Delivery Method Room Air Intake Visit Reasons: EP Mucus/?infection Intake Note: pt is here for mucus and possible infection Patient Tobacco Use Status: Never used Tobacco Allergies Sulfa (Sulfonamide Antibiotics) Allergy (Unknown, Verified 04/09/24 13:37) unknown paper tape Allergy (Mild, Uncoded 04/06/24 09:09) Rash Do you need a note to return to daycare/school/sports/work: Yes HPI HPI Comments History of Present Illness Details Patient is a 68yo M who presents for cough No hx of sthma of COPD Cough since 04/03 Was seen on 04/06 and diagnosed with URI Given nasal spray and tessalon Pt has been taking without resolution of his cough States chest tightness, wheeze and minimal sputum production When he is able to produce sputum it is discolored No fever or chills No sinus pressure, ear pain or ST PFSH Medical History Foot pain, bilateral Abnormal colonoscopy Hyperlipidemia Annual physical exam Dysuria Urethral stricture Recurrent UTI Obese HTN (hypertension) Lymphedema Venous insufficiency of both lower extremities Surgical History History of left hip replacement History of right hip replacement Family History Father Prostate cancer Mother HTN (hypertension) Diabetes Colon cancer Social History Housing: Apartment Alcohol intake: never Patient Tobacco Use Status: Never used Tobacco e-Cigarette/Vaping Use: Never Used service: No Current occupational status: employed Cognitive needs: No Hearing needs: No Vision needs: Yes Review of Systems Const Denies chills and Denies fever(s) ENT Denies otalgia, Reports nasal congestion, Denies sinus pressure and Denies sore throat Card Denies chest pain Resp Reports change in phlegm color, Reports cough and Reports wheezing Musc Denies myalgias Aller/Immun Reports wheezing Physical Exam Vital Signs: Last Vital Signs Temp 98.3 F 04/09/24 13:37 Pulse 78 04/09/24 13:37 BP 140/76 H 04/09/24 13:37 Pulse Ox 97 04/09/24 13:37 Oxygen Delivery Method Room Air 04/09/24 13:37 BMI result Body Mass Index 41.6 General: Non-toxic, NAD. Speaking full sentences. Skin: Warm dry throughout Eye: EOMI HENT: Airway patent. Uvula midline. No pharyngeal erythema or edema. No MANAGER LOSS PREVENTION. Bilateral canals clear. TM non-erythematous, non-bulging. No TM perforation or hemotympanum noted. Respiratory: + wheezinf bilaterlly with decreased at bases. No accessory muscle use Cardiac: RRR. No murmur MSK: Full ROM extremities. Neurology: A/O. No aphasia or facial droop. Psych: Good mood and affect Assessment & Plan Assessment & Plan (1) Wheezing: Code(s): R06.2 - Wheezing Plan: Patient seen and evaluated. O2 improved from last visit Discussed with pt it seems consistent with URI still but he would benfit from prednisone We discussed side effects fo prednisone and how to take Azithromycin to pharmacy incase fevers occur or he has no improvement with prednisone. Patient gave verbal understanding and had no additional questions or concerns at time of discharge All questions answered Medications: New prednisone 40 mg (2 x 20 mg) PO DAILY 4 days 8 tabs 0RF azithromycin 2 pills day one. Then 1 pill daily until complete 250 mg PO DAILY 6 days 6 tabs 0RF Coding Level of Care Code Est Pt Level 3 (39276) Diagnoses Wheezing R06.2
== END 2024-04-09 14:20 | disposition home or self-care (01) ==
PROVIDERS: PCP Internal Medicine; Visit Provider Physician Assistant
DX: R06.2 Wheezing (principal)
CPT/HCPCS: 99213

== ENCOUNTER 2024-04-15 13:36 | Outpatient (AMB) | payer OTHER, SELFPAY ==
--- NOTE | 2024-04-15 14:39 | MHC.OFFWIV ---
Intake Vital Signs 04/15/24 14:41 Height 6 ft Weight 302 lb BMI 41.0 BP 134/70 Blood Pressure Location Lt brachial Position Sitting Pulse 66 Pulse Source Pulse Oximeter Temp 98.7 F Temp Source Oral Pulse Oximetry (%) 95 Oxygen Delivery Method Room Air Intake Visit Reasons: Dry Cough/chest tightness Intake Note: pt here c/o dry cough and chest tightness. Started 2 weeks ago Patient Tobacco Use Status: Never used Tobacco Allergies Sulfa (Sulfonamide Antibiotics) Allergy (Unknown, Verified 04/15/24 14:40) unknown paper tape Allergy (Mild, Uncoded 04/15/24 14:40) Rash HPI Dry Cough/chest tightness HPI Details This note is constructed using voice recognition software. While every effort has been made to ensure accuracy, automotive shop foreman errors may have been included. The patient is a 68 year old male who presents to the clinic today with dry cough and chest tightness. He has been seen x2 at the walk-in clinic for URI. He has been treated symptomatically, however has not resolve. At his last visit he was prescribed prednisone, and also prescribed azithromycin which she was advised to start if he does not have improvement with the prednisone. He had not started that. He reports that the symptoms have been for over 2 weeks, and have involved cough and chest tightness, has not had any fever or chills. He does report that he is having wheezing. He has never used an inhaler. [facility] Medical History Foot pain, bilateral Abnormal colonoscopy Hyperlipidemia Annual physical exam Dysuria Urethral stricture Recurrent UTI Obese HTN (hypertension) Lymphedema Venous insufficiency of both lower extremities Surgical History History of left hip replacement History of right hip replacement Family History Father Prostate cancer Mother HTN (hypertension) Diabetes Colon cancer Social History Housing: Apartment Alcohol intake: never Patient Tobacco Use Status: Never used Tobacco e-Cigarette/Vaping Use: Never Used service: No Current occupational status: employed Cognitive needs: No Hearing needs: No Vision needs: Yes Review of Systems Const All systems reviewed & are unremarkable except as noted in HPI and below Physical Exam Vital Signs: Last Vital Signs Temp 98.7 F 04/15/24 14:41 Pulse 66 04/15/24 14:41 BP 134/70 04/15/24 14:41 Pulse Ox 95 04/15/24 14:41 Oxygen Delivery Method Room Air 04/15/24 14:41 BMI result Body Mass Index 41.0 Const General: cooperative, healthy appearing, comfortable and no acute distress Orientation/consciousness: patient oriented x3 Limitations: no limitations HEENT Head: Yes normal to inspection Ears: hearing grossly normal bilaterally, external ears normal and TM's normal bilaterally General nose exam: Normal external nose present, Normal nares present and No nasal discharge present Face and sinus: Yes normal facial exam and Yes sinuses nontender Mouth: Normal oral and palatal mucosa present and moist mucous membranes Throat: Yes posterior oropharynx normal, Yes tonsils normal and Yes uvula midline Eyes General: appearance normal, both eyes and all related structures Neck Neck: Yes normal visual inspection Resp Effort & Inspection: normal respiratory effort, able to speak in complete sentences, Actively coughing, no respiratory distress, not tachypneic, no tripod positioning and no use of accessory muscles Auscultation: clear to auscultation bilaterally Cardio Jugular venous distension: no JVD Rate: regular rate Rhythm: regular rhythm Heart sounds: S1 normal heart sound present, S2 normal heart sound present, no click, no gallops, no murmurs and no rubs Skin General skin exam: no rashes or lesions noted, elasticity normal and turgor normal Neuro General: patient oriented x3 Extrem General: Yes normal to inspection and Yes no clubbing, cyanosis or edema Assessment & Plan Assessment & Plan (1) URI (upper respiratory infection): Code(s): J06.9 - Acute upper respiratory infection, unspecified Qualifiers: URI type: unspecified URI Qualified Code(s): J06.9 - Acute upper respiratory infection, unspecified Plan: Supportive measures encouraged and reviewed. Deferred viral testing due to timeline since symptom onset. Given that patient has not had improvement on the prednisone as previously discussed with him I did advise him to take the azithromycin that had been prescribed. We will also obtain a chest x-ray today to rule out pneumonia, at which I would plan to add a secondary antibiotic. Advised patient to follow up with worsening symptoms including dyspnea at rest. Wet read of x-ray reflecting large airspace in the base of lung, we will await official radiology read as etiology is unclear this time, however this was present in x-ray on September. (2) Wheezing: Code(s): R06.2 - Wheezing Plan: Albuterol inhaler ordered p.r.n.. Reviewed with patient use a of this medication. Plan See above for full details and plan. Orders: Orders XR chest 2V Today J06.9 - Acute upper respiratory infection, unspecified, R06.2 - Wheezing Medications: New albuterol sulfate 90 mcg/actuation 1 to 2 puffs inhaled 4 times a day PRN; 6.7 grams 0RF shortness of breath or wheezing Coding Level of Care Code Est Pt Level 4 (69289) Diagnoses Upper respiratory tract infection, unspecified type J06.9 URI type: unspecified URI Wheezing R06.2
[2024-04-15 14:41] VITALS: BP 134/70; PULSE 66; TEMP 37.1; O2SAT 95; BMI 41.0
== END 2024-04-15 15:03 | disposition home or self-care (01) ==
PROVIDERS: PCP Internal Medicine; Visit Provider Registered Nurse
DX: J06.9 Acute upper respiratory infection, unspecified (principal); R06.2 Wheezing
CPT/HCPCS: 99214

== ENCOUNTER 2024-04-15 14:47 | Outpatient (REF) | payer OTHER, SELFPAY | END 2024-04-15 14:48 | disposition home or self-care (01) | LOC: HO.LNP 14:47 | PROVIDERS: Visit Provider Registered Nurse | DX: Z13.89 Encounter for screening for other disorder (principal) ==

== ENCOUNTER 2024-04-15 15:01 | Outpatient (REF) | payer OTHER, SELFPAY ==
--- NOTE | ~2024-04-15 | XR_ITS ---
EXAMINATION: XR CHEST CLINICAL INFORMATION: Wheezing. COMPARISON: 09/26/2023 TECHNIQUE: 2 views of the chest were obtained. FINDINGS: Low lung volumes. No focal consolidation. No pleural effusion. Cardiac silhouette is unchanged. No significant change in lucency beneath the hemidiaphragms. Gaseous distention of the colon. XR/XR chest 2V IMPRESSION: No significant change in lucency beneath the hemidiaphragms. Further cross-sectional imaging may be considered. Findings were reviewed and discussed with Chinyere Dumont at 3:45 PM on 04/15/2024.
== END 2024-04-15 15:02 | disposition home or self-care (01) ==
LOC: HO.HMGCX 15:01
PROVIDERS: PCP Internal Medicine; Visit Provider Registered Nurse
DX: R06.2 Wheezing (principal); J06.9 Acute upper respiratory infection, unspecified
CPT/HCPCS: 71046

== ENCOUNTER 2024-04-19 13:09 | Outpatient (AMB) | payer OTHER, SELFPAY ==
[2024-04-19 13:12] VITALS: BP 122/66; PULSE 69; O2SAT 97; BMI 40.3
--- NOTE | 2024-04-19 13:12 | A.OFFPC_ITS ---
Vital Signs 04/19/24 13:12 Height 6 ft Weight 297 lb BMI 40.3 BP 122/66 Blood Pressure Location Rt brachial Position Sitting Pulse 69 Pulse Source Pulse Oximeter Pulse Oximetry (%) 97 Oxygen Delivery Method Room Air Intake Visit Reasons: check up Intake Note: Pt is here today for a follow up after a walk in visit. Allergies Sulfa (Sulfonamide Antibiotics) Allergy (Unknown, Verified 04/19/24 13:14) unknown paper tape Allergy (Mild, Uncoded 04/19/24 13:14) Rash Medication List - Last Reconciled 04/19/24 by Suzie Thomas MD albuterol sulfate 90 mcg/actuation 1 to 2 puffs inhaled 4 times a day PRN; aspirin (Adult Low Dose Aspirin) 81 mg PO DAILY atorvastatin 10 mg PO DAILY fluticasone propionate 50 mcg/actuation 1 spray intranasal BID hydrochlorothiazide 12.5 mg PO QAM losartan 50 mg PO DAILY nystatin 1 appl topical BID tadalafil 5 mg PO DAILY triamcinolone acetonide 0.1% 1 appl topical DAILY Tobacco use date assessed: 04/19/24 Fall risk assessment: No Falls in past year Last assessed Fall Risk: 04/19/24 Dental Screening Dental Screen Date: 11/07/23 HPI check up HPI Details Patient presents for the follow-up of urgent care visit for URI. He is feeling better. Patient had a chest x-ray which showed lucency beneath the hemidiaphragm unchanged comparing to chest x-ray in September. Patient reports having chronic bloating and increase flatulence for a few years, intermittent diarrhea small amount up to 3 times a day. He denies nausea vomiting abdominal pain hematochezia melena. Patient had a hernia repair in the past and developed episode of small-bowel obstruction after hip surgery. Patient has been eating well-balanced diet. He has been established with GI and has a colonoscopy scheduled next month. [facility] Medical History Foot pain, bilateral Abnormal colonoscopy Hyperlipidemia Annual physical exam Dysuria Urethral stricture Recurrent UTI Obese HTN (hypertension) Lymphedema Venous insufficiency of both lower extremities Surgical History History of left hip replacement History of right hip replacement Family History Father Prostate cancer Mother HTN (hypertension) Diabetes Colon cancer Social History Housing: Apartment Alcohol intake: never Patient Tobacco Use Status: Never used Tobacco e-Cigarette/Vaping Use: Never Used service: No Current occupational status: employed Cognitive needs: No Hearing needs: No Vision needs: Yes Questionnaire PHQ-9 Over the last 2 weeks, how often have you been bothered by any of the following problems? 1. Little interest or pleasure in doing things: not at all 2. Feeling down, depressed, or hopeless: not at all 3. Trouble falling or staying asleep, or sleeping too much: not at all 4. Feeling tired or having little energy: not at all 5. Poor appetite or overeating: not at all 6. Feeling bad about yourself - or that you are a failure or have let yourself or your family down: not at all 7. Trouble concentrating on things, such as reading the newspaper or watching television: not at all 8. Moving or speaking so slowly that other people could have noticed. Or the opposite - being so fidgety or restless that you have been moving around a lot more than usual: not at all 9. Thoughts that you would be better off or of hurting yourself in some way: not at all Total score: 0 Depression Screening Interpretation: Negative Depression Screening Done: Yes Source: Developed by Drs. Rusty Brooks, Trish Mayorga, Puneet Reeec and colleagues, with an educational keegan from [employer]. Thrive Questionnaire Date Thrive assessed: 04/19/24 I am a: Patient What is your living situation today?: I have a steady place to live Within the past 12 months, did the food you bought not last and you didn't have the money to get more?: Never true Within the past 12 months, did you worry whether your food would run out before you got money to buy more?: Never true Do you have trouble paying for medicines?: No Do you have trouble getting transportation to medical appointments?: No Do you have trouble paying your heating and electricity bill?: No Do you have trouble taking care of your child, family member or friend?: No Do you have trouble with day-to-day activities such as bathing, preparing meals, shopping, managing finances, etc.?: No Are you currently unemployed and looking for a job?: No Are you interested in more education?: No Please select the resources that you would like help with: Housing/Skilled Nursing Currently or been in a relationship where the following occur: No concerns reported THRIVE Score: 0 AUDIT C Alcohol Use Questionnaire (AUDIT-C) 1. How often do you have a drink containing alcohol?: Never Total Score: 0 DARLENE-7 AMB Questionnaire DARLENE-7 Date DARLENE - 7 assessed: 04/19/24 Feeling nervous, anxious, or on edge: 0 = Not at all Not being able to stop or control worryin = Not at all Worrying too much about different things: 1 = Several days Trouble relaxin = Not at all Being so restless that it is hard to sit still: 0 = Not at all Becoming easily annoyed or irritable: 0 = Not at all Feeling afraid as if something awful might happen: 0 = Not at all Total DARLENE-7 score (0-4 normal; 5-9 mild; 10-14 moderate; 15-21 severe): 1 Source: Developed by Drs. Rusty Brooks, Trish Mayorga, Puneet Reece and colleagues, with an educational keegan from [employer]. Review of Systems Const All systems reviewed & are unremarkable except as noted in HPI and below ENT Reports no additional complaints Card Reports no additional complaints Resp Reports no additional complaints GI Reports no additional complaints Physical exam (Primary Care) Vital Signs: Last Vital Signs Pulse 69 04/19/24 13:12 BP 122/66 04/19/24 13:12 Pulse Ox 97 04/19/24 13:12 Oxygen Delivery Method Room Air 04/19/24 13:12 BMI result Body Mass Index 40.3 Tobacco/Smoking Status: Tobacco use Status Tobacco use date assessed 04/19/24 04/19/24 13:16 Patient Tobacco Use Status Never used Tobacco 04/19/24 13:16 e-Cigarette/Vaping Use Never Used 04/19/24 13:16 PHQ-9: PHQ-9 Score PHQ-9: Total score 0 04/19/24 13:16 Depression Screening Interpretation: Negative Thrive Assessment: Date of Thrive Assessment Date Thrive assessed 04/19/24 04/19/24 13:16 Currently or been in a relationship where the following occur: No concerns reported Const General: no acute distress Eyes General: appearance normal, both eyes and all related structures Neck Neck: Yes supple Resp Effort & Inspection: normal respiratory effort Auscultation: clear to auscultation bilaterally Cardio Rhythm: regular rhythm Heart sounds: S1 normal heart sound present and S2 normal heart sound present GI Inspection: Yes distended and Yes obesity Palpation (GI): Soft to palpation, nontender and No hepatosplenomegaly present Percussion: Yes normal to percussion Auscultation: normal bowel sounds Assessment and Plan Assessment & Plan (1) SBO (small bowel obstruction): Code(s): K56.609 - Unspecified intestinal obstruction, unspecified as to partial versus complete obstruction Plan: Check abdominal x-ray for partial SBO, patient was advised to increase fiber intake and physical activity he will follow-up with GI for colonoscopy (2) HTN (hypertension): Code(s): I10 - Essential (primary) hypertension Plan: Continue current medication check basic metabolic panel, patient was advised to increase potassium rich foods to keep K at around 4 Orders: Orders XR abdomen w decubitus Today K56.609 - Unspecified intestinal obstruction, unspecified as to partial versus complete obstruction Basic Metabolic Panel Today I10 - Essential (primary) hypertension Coding Level of Care Code Est Pt Level 3 (58623) Diagnoses SBO (small bowel obstruction) K56.609 HTN (hypertension) I10
== END 2024-04-19 14:15 | disposition home or self-care (01) ==
PROVIDERS: PCP Internal Medicine; Visit Provider Internal Medicine
DX: K56.609 Unspecified intestinal obstruction, unspecified as to partial versus complete obstruction (principal); I10 Essential (primary) hypertension
CPT/HCPCS: 99213

== ENCOUNTER 2024-04-19 14:05 | Outpatient (REF) | payer OTHER, SELFPAY ==
--- NOTE | ~2024-04-19 | XR_ITS ---
EXAMINATION: XR ABDOMEN COMPLETE CLINICAL INDICATION: Intestinal obstruction COMPARISON: None available. TECHNIQUE: 2 views of the abdomen. FINDINGS: Supine and upright x-rays of the abdomen show severe gaseous distention mostly of the colon. The left upper abdominal: Measures 10.9 cm in transverse diameter. Rectal bowel gas is not visible. Bilateral total hip arthroplasty prostheses are present. Erect abdominal x-ray shows no air fluid level. No free air under hemidiaphragms is seen. XR/XR abdomen min 2V IMPRESSION: 1. Severe gaseous distention of the colon, could represent mechanical obstruction. 2. No free air under hemidiaphragms.
[2024-04-19 16:32] LABS: Anion Gap 12 (12-20); Blood Urea Nitrogen 11 mg/dL (9-16); Calcium 9.4 mg/dL (8.4-10.2); Carbon Dioxide 28 mmol/L (22-29); Chloride 104 mmol/L (96-108); Estimated Glomerular Filt Rate > 60; Glucose Random 98 mg/dL (60-115); Potassium 3.8 mmol/L (3.3-5.1); Sodium 140 mmol/L (135-145)
== END 2024-04-19 14:06 | disposition home or self-care (01) ==
LOC: HO.HMGCX 14:05
PROVIDERS: PCP Internal Medicine; Visit Provider Internal Medicine
DX: I10 Essential (primary) hypertension (principal); K56.609 Unspecified intestinal obstruction, unspecified as to partial versus complete obstruction
CPT/HCPCS: 36415; 74019; 80048

== ENCOUNTER 2024-07-26 15:27 | Outpatient (REF) | payer OTHER, SELFPAY ==
[2024-07-27 12:21] LABS: Influenza A PCR NEGATIVE (Negative); Influenza B PCR NEGATIVE (Negative); Resp Syncy Virus RNA Qual PCR NEGATIVE (Negative); SARS COV2 PCR INHOUSE NEGATIVE (Negative)
== END 2024-07-26 15:28 | disposition home or self-care (01) ==
LOC: HO.LAB 15:27
PROVIDERS: Physician Assistant; PCP Internal Medicine
DX: J06.9 Acute upper respiratory infection, unspecified (principal)
CPT/HCPCS: 0241U

== ENCOUNTER → 2024-07-26 15:27 | Outpatient (AMB) | payer OTHER, SELFPAY ==
--- NOTE | 2024-07-26 15:39 | AM.OFFWIN_ITS ---
Intake Vital Signs 07/26/24 15:40 Weight 295 lb BP 130/78 Blood Pressure Location Rt brachial Position Sitting Pulse 67 Pulse Source Pulse Oximeter Temp 98.2 F Temp Source Oral Pulse Oximetry (%) 95 Oxygen Delivery Method Room Air Intake Visit Reasons: EP Cough for 2 weeks Intake Note: Patient here for cough that has been present for about 2 weeks. Patient Tobacco Use Status: Never used Tobacco Allergies Sulfa (Sulfonamide Antibiotics) Allergy (Unknown, Verified 07/26/24 15:40) unknown paper tape Allergy (Mild, Uncoded 07/26/24 15:40) Rash Do you need a note to return to daycare/school/sports/work: No HPI HPI Comments History of Present Illness Details Patient is a 68-year-old male complaining of 14 days of a productive and dry cough, he states that it alternates and when it is productive, he has a brownish yellow sputum. He is also complaining of head congestion, fatigue, chills and shortness of breaths. He denies any sinus pain, ear pain, fevers or wheezing. He admits to a reduced appetite as well. He has tried taking NyQuil which seems to help a little bit. 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 [facility] Medical History Foot pain, bilateral Abnormal colonoscopy Hyperlipidemia Annual physical exam Dysuria Urethral stricture Recurrent UTI Obese HTN (hypertension) Lymphedema Venous insufficiency of both lower extremities Surgical History History of left hip replacement History of right hip replacement Family History Father Prostate cancer Mother HTN (hypertension) Diabetes Colon cancer Social History Housing: Apartment Alcohol intake: never Patient Tobacco Use Status: Never used Tobacco e-Cigarette/Vaping Use: Never Used service: No Current occupational status: employed Cognitive needs: No Hearing needs: No Vision needs: Yes Review of Systems Const All systems reviewed & are unremarkable except as noted in HPI and below Physical Exam Vital Signs: Last Vital Signs Temp 98.2 F 07/26/24 15:40 Pulse 67 07/26/24 15:40 BP 130/78 07/26/24 15:40 Pulse Ox 95 07/26/24 15:40 Oxygen Delivery Method Room Air 07/26/24 15:40 Const General: cooperative, healthy appearing, comfortable and no acute distress Orientation/consciousness: patient oriented x3 Limitations: no limitations HEENT Head: Yes normal to inspection Ears: hearing grossly normal bilaterally, external ears normal and TM's normal bilaterally General nose exam: Normal external nose present, Normal nares present and No nasal discharge present Face and sinus: Yes normal facial exam and Yes sinuses nontender Mouth: Normal oral and palatal mucosa present and moist mucous membranes Throat: Yes tonsils normal, Yes uvula midline and Yes posterior oropharynx abnormal (Erythema) Eyes General: appearance normal, both eyes and all related structures Neck Neck: Yes normal visual inspection Resp Effort & Inspection: normal respiratory effort, able to speak in complete sentences, Actively coughing, no respiratory distress, not tachypneic, no tripod positioning and no use of accessory muscles Auscultation: clear to auscultation bilaterally Cardio Rate: regular rate Rhythm: regular rhythm Heart sounds: normal S1 and S2 Skin General skin exam: no rashes or lesions noted Neuro General: patient oriented x3 Extrem General: Yes normal to inspection and Yes no clubbing, cyanosis or edema Assessment & Plan Assessment & Plan (1) Atypical pneumonia: Code(s): J18.9 - Pneumonia, unspecified organism Plan: Vital signs are stable, patient is well-appearing and lung sounds were clear. As he was exposed to high school kids on a daily basis and has had his cough for 14 days, likely atypical pneumonia and I sent a Z-Dony to his pharmacy. I did send flu COVID and RSV testing to be thorough Plan See above Orders: Orders SARS-CoV2/FLU/RSV Today J06.9 - Acute upper respiratory infection, unspecified Medications: New azithromycin For 250 mg dose pack: take 500 mg today (day 1), then 250 mg for 4 days (days 2-5) PO 6 tabs 0RF Coding Level of Care Code Est Pt Level 3 (74071) Diagnoses Atypical pneumonia J18.9
[2024-07-26 15:40] VITALS: BP 130/78; PULSE 67; TEMP 36.8; O2SAT 95
== END ==
PROVIDERS: PCP Internal Medicine; Visit Provider Physician Assistant
DX: J18.9 Pneumonia, unspecified organism (principal)

== ENCOUNTER 2025-03-06 10:08 | Outpatient (AMB) | payer OTHER, SELFPAY ==
[2025-03-06 10:31] VITALS: BP 120/68; PULSE 73; RESP 20; TEMP 36.8; O2SAT 96; BMI 41.2
--- NOTE | 2025-03-06 10:31 | MHC.PC.OV ---
Vital Signs 03/06/25 10:31 Height 6 ft Weight 304 lb BMI 41.2 BP 120/68 Blood Pressure Location Lt brachial Position Sitting Respiration 20 Pulse 73 Pulse Source Pulse Oximeter Temp 98.3 F Temp Source Oral Pulse Oximetry (%) 96 Oxygen Delivery Method Room Air Intake Visit Reasons: Annual PE Intake Note: Pt is here today for PE. Allergies Sulfa (Sulfonamide Antibiotics) Allergy (Unknown, Verified 03/06/25 10:31) unknown paper tape Allergy (Mild, Uncoded 03/06/25 10:31) Rash Medication List - Last Reconciled 03/06/25 by Suzie Thomas MD aspirin (Adult Low Dose Aspirin) 81 mg PO DAILY atorvastatin 10 mg PO DAILY hydrochlorothiazide 12.5 mg PO QAM losartan 50 mg PO DAILY nystatin 1 appl topical BID tadalafil 5 mg PO DAILY Tobacco use date assessed: 03/06/25 Fall risk assessment: No Falls in past year Last assessed Fall Risk: 03/06/25 Dental Screening Dental Screen Date: 03/06/25 Did you have a dental visit in the last 12 months?: Yes Did you have a dental problem in the last 6 months where you did not have access to dental care?: No Was dental information given to patient?: Patient has dentist HPI Annual PE HPI Details Pt presents for PE. He complains of chronic BPH symptoms. Patient has not been taking finasteride and tamsulosin as prescribed by urologist. He had discussion about TURP with urologist but patient is concerned about previous episodes of SBO with prolonged hospitalization following the surgery and general anesthesia. [facility] Medical History (Updated 03/06/25 @ 11:49 by Suzie Thomas MD) Foot pain, bilateral Abnormal colonoscopy Hyperlipidemia Annual physical exam Dysuria Urethral stricture Recurrent UTI Obese HTN (hypertension) Lymphedema Venous insufficiency of both lower extremities Surgical History History of left hip replacement History of right hip replacement Family History Father Prostate cancer Mother HTN (hypertension) Diabetes Colon cancer Social History Housing: Apartment Alcohol intake: never Patient Tobacco Use Status: Never used Tobacco e-Cigarette/Vaping Use: Never Used Second Hand Smoke Exposure: No service: No Current occupational status: employed Cognitive needs: No Hearing needs: No Vision needs: Yes Questionnaire PHQ-9 Over the last 2 weeks, how often have you been bothered by any of the following problems? 1. Little interest or pleasure in doing things: not at all 2. Feeling down, depressed, or hopeless: not at all 3. Trouble falling or staying asleep, or sleeping too much: several days 4. Feeling tired or having little energy: several days 5. Poor appetite or overeating: several days 6. Feeling bad about yourself - or that you are a failure or have let yourself or your family down: not at all 7. Trouble concentrating on things, such as reading the newspaper or watching television: not at all 8. Moving or speaking so slowly that other people could have noticed. Or the opposite - being so fidgety or restless that you have been moving around a lot more than usual: not at all 9. Thoughts that you would be better off or of hurting yourself in some way: not at all Total score: 3 Depression Screening Interpretation: Negative Depression Screening Done: Yes 97364 - PHQ-9 Billing: Yes Source: Developed by Drs. Rusty Brooks, Trish Mayorga, Puneet Reece and colleagues, with an educational keegan from [employer]. Thrive Questionnaire Date Thrive assessed: 03/06/25 I am a: Patient What is your living situation today?: I have a steady place to live Within the past 12 months, did the food you bought not last and you didn't have the money to get more?: Never true Within the past 12 months, did you worry whether your food would run out before you got money to buy more?: Never true Do you have trouble paying for medicines?: No Do you have trouble getting transportation to medical appointments?: No Do you have trouble paying your heating and electricity bill?: No Do you have trouble taking care of your child, family member or friend?: No Do you have trouble with day-to-day activities such as bathing, preparing meals, shopping, managing finances, etc.?: No Are you currently unemployed and looking for a job?: No Are you interested in more education?: No Please select the resources that you would like help with: None Currently or been in a relationship where the following occur: No concerns reported THRIVE Score: 0 AUDIT C Alcohol Use Questionnaire (AUDIT-C) 1. How often do you have a drink containing alcohol?: Never 3. How often do you have six or more drinks on one occasion?: Never Total Score: 0 DARLENE-7 AMB Questionnaire DARLENE-7 Date DARLENE - 7 assessed: 03/06/25 Feeling nervous, anxious, or on edge: 0 = Not at all Not being able to stop or control worryin = Not at all Worrying too much about different things: 0 = Not at all Trouble relaxin = Not at all Being so restless that it is hard to sit still: 0 = Not at all Becoming easily annoyed or irritable: 0 = Not at all Feeling afraid as if something awful might happen: 0 = Not at all Total DARLENE-7 score (0-4 normal; 5-9 mild; 10-14 moderate; 15-21 severe): 0 Source: Developed by Drs. Rusty Brooks, Trish Mayorga, Puneet Reece and colleagues, with an educational keegan from [employer]. DARLENE-7 Assessment Billing DARLENE-7 Assessment Tool: DARLENE-7 Assessment 72439 Review of Systems Const All systems reviewed & are unremarkable except as noted in HPI and below Reports no additional complaints Eyes Reports no additional complaints ENT Reports no additional complaints Card Reports no additional complaints Resp Reports no additional complaints GI Reports no additional complaints Reports no additional complaints Physical exam (Primary Care) Vital Signs: Last Vital Signs Temp 98.3 F 03/06/25 10:31 Pulse 73 03/06/25 10:31 Resp 20 03/06/25 10:31 BP 120/68 03/06/25 10:31 Pulse Ox 96 03/06/25 10:31 Oxygen Delivery Method Room Air 03/06/25 10:31 BMI result Body Mass Index 41.2 Tobacco/Smoking Status: Tobacco use Status Tobacco use date assessed 03/06/25 03/06/25 10:33 Patient Tobacco Use Status Never used Tobacco 03/06/25 10:33 e-Cigarette/Vaping Use Never Used 03/06/25 10:31 PHQ-9: PHQ-9 Score PHQ-9: Total score 3 03/06/25 10:49 Depression Screening Interpretation: Negative Thrive Assessment: Date of Thrive Assessment Date Thrive assessed 03/06/25 03/06/25 10:33 Currently or been in a relationship where the following occur: No concerns reported Const General: no acute distress HENMT Head: Yes normal to inspection Ears: hearing grossly normal bilaterally Face and sinus: Yes normal facial exam Mouth: Normal oral and palatal mucosa present Eyes General: appearance normal, both eyes and all related structures Neck Neck: Yes no lymphadenopathy and Yes supple Resp Effort & Inspection: normal respiratory effort Auscultation: clear to auscultation bilaterally Cardio Rhythm: regular rhythm Heart sounds: S1 normal heart sound present and S2 normal heart sound present GI Inspection: Yes normal to inspection Palpation (GI): Soft to palpation Percussion: Yes normal to percussion Auscultation: normal bowel sounds Coding Level of Care Code Est Pt Prev Care >65y(98883) Diagnoses HTN (hypertension) I10 Hyperlipidemia E78.5 Obese E66.9 SBO (small bowel obstruction) K56.609 Annual physical exam Z00.00 BPH (benign prostatic hyperplasia) N40.0 Additional Codes DARLENE-7 Assessment Billing - DARLENE-7 Assessment Tool: DARLENE-7 Assessment [id number] ([id number]) PHQ-9 - 03165 - PHQ-9 Billing: Yes ([id number]) Assessment & Plan Assessment & Plan (1) HTN (hypertension): Code(s): I10 - Essential (primary) hypertension Category: Medical Plan: Continue current medications (2) Hyperlipidemia: Code(s): E78.5 - Hyperlipidemia, unspecified Category: Medical Plan: Continue statin (3) Obese: Code(s): E66.9 - Obesity, unspecified Category: Medical Plan: Decreasing caloric intake increasing physical activity discussed with the pt (4) SBO (small bowel obstruction): Comment: Established with GI Code(s): K56.609 - Unspecified intestinal obstruction, unspecified as to partial versus complete obstruction Category: Medical Plan: Increasing fiber intake like Metamucil or Citrucel discussed with the patient (5) Annual physical exam: Code(s): Z00.00 - Encounter for general adult medical examination without abnormal findings Category: Medical Plan: Well-balanced diet regular physical activity weight loss discussed with the patient. He is up-to-date with colonoscopy. (6) BPH (benign prostatic hyperplasia): Code(s): N40.0 - Benign prostatic hyperplasia without lower urinary tract symptoms Category: Medical Plan: Patient will restart finasteride. He refuses taking alpha rashel because of history symptomatic hypotension Orders: Orders UA w Microscopic Today I10 - Essential (primary) hypertension Lipid Panel Today I10 - Essential (primary) hypertension Comprehensive [place]. Panel Fast Today I10 - Essential (primary) hypertension Complete Blood Count Auto Diff Today I10 - Essential (primary) hypertension PSA,Total (Free>4and<10) Today I10 - Essential (primary) hypertension Medications: New finasteride 5 mg PO DAILY 90 tabs 3RF
--- OUTSIDE RECORDS SUMMARY | 2025-03-06 11:28 | XMS_ITS | Clinical Summary ---
Author Organization [facility] Address [address] [place] [address] Phone Care Team Providers Care Wire Mesh Filter Fabricator Name Role Phone Suzie Thomas MD Primary Care Provider [phone] Allergies Active Allergy Reactions Criticality Noted Date Comments Adhesive Tape-Silicones 11/21/2024 Sulfa (Sulfonamide Antibiotics) Rash 10/19 Medications atorvastatin (LIPITOR) 10 mg tablet Take 1 tablet (10 mg total) by mouth 1 (one) time each day. 4 Active losartan (COZAAR) 50 mg tablet Take 1 tablet (50 mg total) by mouth 1 (one) time each day. 5 Active tadalafiL (CIALIS) 5 mg tablet Take 1 tablet (5 mg total) by mouth 1 (one) time each day. 5 Active hydroCHLOROthia zide 12.5 mg tablet Take 1 tablet (12.5 mg total) by mouth 1 (one) time each day. Active aspirin 81 mg chewable tablet Chew 1 tablet (81 mg total) 1 (one) time each day. Active nystatin (MYCOSTATIN) 100,000 unit/gram powder Apply 1 Application topically 2 (two) times a day. 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 He will complete Xifaxan 14 days course He will reach out to me if his symptoms declined again. We discussed repeating a course of Xifaxan. The biopsies of the colon were not specific for microscopic colitis although we discussed a potential trial of budesonide potentially I ordered labs to rule out a B12 deficiency and celiac Surgical History Surgery Date Site/Laterality Comments TOTAL HIP ARTHROPLASTY Bilateral HERNIA REPAIR COLONOSCOPY 10/19/2024 - 11/15/2024 dilated colon, bx active patchy colitis, nonspecific. Medical History Medical History Date Comments Hypertension Hyperlipidemia Colon polyp Social History Tobacco Use Types Packs/Day Years Used Date Smoking Tobacco: Never Tobacco Cessation:Counseling Given: Not Answered Alcohol Use Standard Drinks/Week Comments Not Currently 0 (1 standard drink = 0.6 oz pur e alcohol) Interpersonal Safety Answer Date Record ed Physical Abuse 11/05/2024 Verbal Abuse 11/05/2024 Sex and Gender Information Value Date Recorded Sex Assigned at Male 11/04/2024 2:31 PM EST Legal Sex Male 1:49 AM EST Gender Identity Male 11/04/2024 2:31 PM EST Sexual Orientation Choose not to disclose 2024 2:32 PM EST Obstetrics History Last Filed Vital Signs Vital Sign Reading Time Taken Comments Blood Pressure 116/71 11/05/2024 9:20 AM EST Pulse 74 11/05/2024 9:20 AM EST Temperature 36.4 C (97.5 F) 11/05/2024 7:51 AM EST Respiratory Rate 17 11/05/2024 9:20 AM EST Oxygen Saturation 97% 11/05/2024 9:20 AM EST Inhaled Oxygen Concentration - - Weight 133 kg (293 lb) 11/21/2024 1:41 PM EST Height 182.9 cm (6') 11/21/2024 1:41 PM EST Body Mass Index 39.74 11/21/2024 1:41 PM EST Plan of Treatment Health Maintenance Due Date Last Done Comments Pneumococcal Vaccine: 50+ Years (1 of 1 - PCV) 2005 Zoster Vaccines (1 of 2) 2005 Cholesterol Screening (Lipid Panel) 10/17/2023 Depression Screening 10/17/2023 Hepatitis C Screening 10/17/2023 Social Influencers of Health Screening 10/17/2023 DTaP,Tdap,and Td Vaccines (2 - Td or Tdap) 11/09/2023 11/09/2013 COVID-19 Vaccine (4 - 2023-2 5 season) 2024 09/09/2021, 01/04/2021, 12/07/2020 Influenza Vaccine (Season Ended) 2025 Falls Risk Assessment 11/05/2025 11/05/2024 RSV Immunization Adult Patients (1 - 1-dose 75+ series) 2030 Colorectal Cancer Screening: Colonoscopy 11/05/2034 11/05/2024 HIB Vaccines Aged Out No longer eligi ble based on patient's age to complete this topic HPV Vaccines Aged Out No longer eligi ble based on patient's age to complete this topic Hepatitis A Vaccines Aged Out No long er eligible based on patient's age to complete this topic Hepatitis B Vaccines Aged Out No long er eligible based on patient's age to complete this topic IPV Vaccines Aged Out No longer eligi ble based on patient's age to complete this topic MMR Vaccines Aged Out No longer eligi ble based on patient's age to complete this topic Meningococcal ACWY Vaccine Aged Out N o longer eligible based on patient's age to complete this topic Meningococcal B Vaccine Aged Out No l onger eligible based on patient's age to complete this topic RSV Immunization Patients Under 20 months Aged Out No longer eligible b ased on patient's age to complete this topic Varicella Vaccines Aged Out No longer eligible based on patient's age to complete this topic Procedures Procedure Name Priority Date/Time Associated Diagnosis Comments COLONOSCOPY Routine 11/05/2024 8:59 AM EST Colon cancer screening from Last 3 Months or Most Recently Relevant to Health Maintenance Results * COLONOSCOPY Anesthesia - MAC; [facility] ENDOSCOPY (11/05/2024 8:59 AM EST) Anatomical Region Laterality Modality Other 11/05/2024 8:36 AM EST Impressions 11/05/2024 9:02 AM EST - Dilated in the entire examined colon. Biopsied. - The examination was otherwise normal on direct and retroflexion views. Recommendation: - Await pathology results. - Trial Rifaximin x 2 weeks Narrative 11/05/2024 9:02 AM EST [facility] GI Patient Name: Aubrey Cruz Procedure Date: 11/05/2024 8:36 AM Date of : 1955 Age: 69 Room: ROOM 14 Gender: Male Note Status: Finalized Attending MD: Vlad Camacho MD, Procedure Date No Time: 11/05/2024 Procedure: Colonoscopy Indications: High risk colon cancer surveillance: Personal history of colonic polyps, Incidental - Chronic diarrhea Providers: Vlad Camacho MD Referring MD: Vlad Camacho MD Medicines: Propofol per Anesthesia Complications: No immediate complications. Estimated Blood Loss: Estimated blood loss: none. Procedure: Pre-Anesthesia Assessment: - ASA Grade Assessment: III - A patient with severe systemic disease. After I obtained informed consent, the scope was passed under direct vision. Throughout the procedure, the patient's blood pressure, pulse, and oxygen saturations were monitored continuously.The Colonoscope was introduced through the anus and advanced to the cecum, identified by appendiceal orifice and ileocecal valve. The colonoscopy was performed without difficulty. The patient tolerated the procedure well. The quality of the bowel preparation was adequate. Findings: The perianal and digital rectal examinations were normal. The lumen of the colon (entire examined portion) was significantly dilated. Biopsies for histology were taken with a cold forceps from the right colon and left colon for evaluation of microscopic colitis. The exam was otherwise without abnormality on direct and retroflexion views. Procedure Code(s): --- Professional --- 91479, Colonoscopy, flexible; with biopsy, single or multiple Diagnosis Code(s): --- Professional --- Z86.010, Personal history of colonic polyps K59.39, Other megacolon CPT copyright 2020 [employer]. All rights reserved. The codes documented in this report are preliminary and upon boat canvas maker and installer review may be revised to meet current compliance requirements. Vlad Camacho MD 11/05/2024 9:02:33 AM This report has been signed electronically.Vlad Camacho MD Number of Addenda: 0 Note Initiated On: 11/05/2024 8:36 AM Scope In: Scope Out: Endoscopy Department at [facility] - [address] [place] [id number] Procedure Note Vlad Camacho MD - 11/05/2024 [facility] GI Patient Name: Aubrey Cruz Procedure Date: 11/05/2024 8:36 AM Date of : 1955 Age: 69 Room: ROOM 14 Gender: Male Note Status: Finalized Attending MD: Vlad Camacho MD, Procedure Date No Time: 11/05/2024 Procedure: Colonoscopy Indications: High risk colon cancer surveillance: Personalhistory of colonic polyps, Incidental - Chronic diarrhea Providers: Vlad Camacho MD Referring MD: Vlad Camacho MD Medicines: Propofol per Anesthesia Complications: No immediate complications. Estimated Blood Loss: Estimated blood loss: none. Procedure: Pre-Anesthesia Assessment: - ASA Grade Assessment: III - A patient with severe systemic disease. After I obtained informed consent, the scope was passed under direct vision. Throughout theprocedure, the patient's blood pressure, pulse, and oxygen saturations were monitored continuously.The Colonoscope was introduced through the anus and advanced to the cecum, identified by appendiceal orifice and ileocecal valve. The colonoscopy was performed without difficulty. The patient tolerated the procedure well. The quality of the bowel preparation was adequate. Findings: The perianal and digital rectal examinations were normal. The lumen of the colon (entire examined portion)was significantly dilated. Biopsies for histology were taken with a cold forceps from the right colon and left colon for evaluation of microscopic colitis. The exam was otherwise without abnormality ondirect and retroflexion views. Procedure Code(s): --- Professional --- 15386, Colonoscopy, flexible; with biopsy, singleor multiple Diagnosis Code(s): --- Professional --- Z86.010, Personal history of colonic polyps K59.39, Other megacolon CPT copyright 2020 [employer]. All rights reserved. The codes documented in this report are preliminary and upon boat canvas maker and installer reviewmay be revised to meet current compliance requirements. Vlad Camacho MD 11/05/2024 9:02:33 AM This report has been signed electronically.Vlad Camacho MD Number of Addenda: 0 Note Initiated On: 11/05/2024 8:36 AM Scope In: Scope Out: Endoscopy Department at [facility] - [address] [place] [id number] IMPRESSION: - Dilated in the entire examined colon. Biopsied. - The examination was otherwise normal on directand retroflexion views. Recommendation: - Await pathology results. - Trial Rifaximin x 2 weeks Vlad Camacho MD GI~PROCEDURE ORDERABLES Fin al Result from Last 3 Months or Most Recently Relevant to Health Maintenance Insurance [facility] [address] [place] [address] Care Teams Wire Mesh Filter Fabricator Relationship Specialty Start Date End Date Suzie Thomas MD [address] [facility] [place] [id number] PCP - General Internal Medicine 10/22/24
== END 2025-03-06 11:14 | disposition home or self-care (01) ==
LOC: HO.HMCC 10:08
PROVIDERS: PCP Internal Medicine; Visit Provider Internal Medicine
DX: Z00.00 Encounter for general adult medical examination without abnormal findings (principal); K56.609 Unspecified intestinal obstruction, unspecified as to partial versus complete obstruction; Z68.41 Body mass index [BMI] 40.0-44.9, adult; E66.9 Obesity, unspecified; I10 Essential (primary) hypertension; E78.5 Hyperlipidemia, unspecified; N40.0 Benign prostatic hyperplasia without lower urinary tract symptoms

== ENCOUNTER 2025-03-06 10:08 | Outpatient (REF) | payer OTHER, SELFPAY ==
[2025-03-06 13:02] LABS: MANUAL DIFF FLAG NO
[2025-03-06 13:03] LABS: Appearance Urine Clear; Color Urine Yellow; Glucose Urine UA Negative (Negative); Leukocyte Esterase Urine Negative (Negative); Nitrite Urine Negative (Negative); Urine Blood Negative (Negative); Urine Ketones Negative (Negative); Urine Protein Negative (Neg-Trace)
[2025-03-06 13:06] LABS: Bacteria Urine None Seen (None Seen); Hyaline Casts Urine 0-2 /LPF (0-2); RBC Urine 0-2 /HPF (0-2); Squamous Epithelial Cell Urine 0-2 /HPF (0-2); WBC Urine 0-5 /HPF (0-5)
[2025-03-06 13:08] LABS: Basophils Absolute Auto 0.1 X10*3/uL (0.0-0.2); Basophils Percent Auto 1.7 % (0-2); Eosinophils Absolute Auto 0.2 X10*3/uL (0.0-0.4); Eosinophils Percent Auto 3.7 % (0-4); Hematocrit 44.7 % (42.0-52.0); Hemoglobin 14.3 g/dl (14.0-18.0); Imm Gran Abs Auto 0.03 X10*3/uL (0.00-0.03); Imm Gran Pct Auto 0.6 % (0.0-0.4); Lymphocytes Percent Auto 21.5 % (20-40); Mean Corpuscular Hemoglobin 31.1 pg (27.0-33.0); Mean Corpuscular Volume 97.2 fL (80.0-98.0); Mean Platelet Volume 11.2 fL (9.4-12.4); Monocytes Absolute Auto 0.5 X10*3/uL (0.1-1.2); Monocytes Percent Auto 9.9 % (2-11); Neutrophils Percent Auto 62.6 % (45-73); Platelet Count 141 X10*3/uL (160-400); White Blood Count 4.8 X10*3/uL (4.8-10.8)
[2025-03-06 13:33] LABS: Alanine Aminotransferase 41 U/L (0-40); Albumin Level 4.2 g/dL (3.5-5.0); Alkaline Phosphatase 95 U/L (39-117); Anion Gap 12 (12-20); Aspartate Amino Transferase 46 U/L (5-37); Bilirubin Total 1.1 mg/dL (0.0-1.0); Blood Urea Nitrogen 20 mg/dL (9-16); Carbon Dioxide 29 mmol/L (22-29); Chloride 105 mmol/L (96-108); Cholesterol 118 mg/dL (<200); Estimated Glomerular Filt Rate > 60; Glucose Fasting 102 mg/dL (60-99); HDL Cholesterol 56 mg/dL (>40); LDL Cholesterol Calculated 55 mg/dL (<100); Sodium 142 mmol/L (135-145); Total Protein 6.6 g/dL (6.5-8.0); Triglycerides 36 mg/dL (<150)
[2025-03-06 13:49] LABS: PSA,Total (Free>4and<10) 4.25 ng/mL (0.00-4.00)
[2025-03-07 13:34] LABS: Free Prostate Spec Ag 0.8 ng/mL; Percent Free Prostate Spec Ag 22 % (calc) (>25); Prostate Specific Ag Total 3.6 ng/mL (< OR = 4.0)
== END 2025-03-06 10:09 | disposition home or self-care (01) ==
LOC: HO.HMGCLDS 10:08
PROVIDERS: PCP Internal Medicine; Visit Provider Internal Medicine
DX: Z00.00 Encounter for general adult medical examination without abnormal findings (principal); I10 Essential (primary) hypertension; N40.0 Benign prostatic hyperplasia without lower urinary tract symptoms; K56.609 Unspecified intestinal obstruction, unspecified as to partial versus complete obstruction; E66.9 Obesity, unspecified; E78.5 Hyperlipidemia, unspecified; Z12.5 Encounter for screening for malignant neoplasm of prostate; Z68.41 Body mass index [BMI] 40.0-44.9, adult; Z91.148 Patient's other noncompliance with medication regimen for other reason; Z13.30 Encounter for screening examination for mental health and behavioral disorders, unspecified
CPT/HCPCS: 36415; 80053; 80061; 81001; 84153; 84154; 85025; 96127

== ENCOUNTER 2025-07-31 10:48 | Outpatient (AMB) | payer OTHER, SELFPAY ==
--- NOTE | 2025-07-31 10:49 | A.OFFPC_ITS ---
Vital Signs 07/31/25 10:51 07/31/25 10:53 Height 6 ft Weight 305 lb BMI 41.4 BP 150/62 H 128/62 Blood Pressure Location Rt brachial Rt brachial Position Sitting Sitting Pulse 86 Pulse Source Pulse Oximeter Temp 98.2 F Temp Source Oral Pulse Oximetry (%) 96 Oxygen Delivery Method Room Air Intake Visit Reasons: Lt leg pain/groin area Intake Note: Pt is here today for a sick visit. Pt c/o L leg/groin area pain. Allergies Sulfa (Sulfonamide Antibiotics) Allergy (Unknown, Verified 07/31/25 10:50) unknown paper tape Allergy (Mild, Uncoded 07/31/25 10:50) Rash Medication List - Last Reconciled 07/31/25 by Suzie Thomas MD aspirin (Adult Low Dose Aspirin) 81 mg PO DAILY atorvastatin 10 mg PO DAILY finasteride 5 mg PO DAILY hydrochlorothiazide 12.5 mg PO QAM losartan 50 mg PO DAILY meloxicam 15 mg PO DAILY nystatin 1 appl topical BID tadalafil 5 mg PO DAILY Tobacco use date assessed: 07/31/25 Dental Screening Dental Screen Date: 03/06/25 HPI Lt leg pain/groin area HPI Details Patient presents complaining of 4 days of left groin pain worse when walking or position change but also at rest. The pain started radiating to left calf and he has noticed increased swelling and tenderness to the touch of L calf. Patient denies lower back pain fever chills injury. He has not been wearing compression wraps for bilateral lower extremities chronic lymphedema because he can not find pants to fit. Hypertension and hyperlipidemia are controlled on current medications [facility] Medical History (Updated 07/31/25 @ 11:11 by Suzie Thomas MD) Foot pain, bilateral Abnormal colonoscopy Hyperlipidemia Annual physical exam Dysuria Urethral stricture Recurrent UTI Obese HTN (hypertension) Lymphedema Venous insufficiency of both lower extremities Surgical History History of left hip replacement History of right hip replacement Family History Father Prostate cancer Mother HTN (hypertension) Diabetes Colon cancer Social History Housing: Apartment Alcohol intake: never Patient Tobacco Use Status: Never used Tobacco e-Cigarette/Vaping Use: Never Used Second Hand Smoke Exposure: No service: No Current occupational status: employed Cognitive needs: No Hearing needs: No Vision needs: Yes Questionnaire Thrive Questionnaire Date Thrive assessed: 03/06/25 DARLENE-7 AMB Questionnaire DARLENE-7 Date DARLENE - 7 assessed: 03/06/25 Source: Developed by Drs. Rusty Brooks, Trish Mayorga, Puneet Reece and colleagues, with an educational keegan from [employer]. Review of Systems Const All systems reviewed & are unremarkable except as noted in HPI and below Eyes Reports no additional complaints ENT Reports no additional complaints Card Reports no additional complaints Resp Reports no additional complaints GI Reports no additional complaints Reports no additional complaints Physical exam (Primary Care) Vital Signs: Last Vital Signs Temp 98.2 F 07/31/25 10:51 Pulse 86 07/31/25 10:51 BP 128/62 07/31/25 10:53 Pulse Ox 96 07/31/25 10:51 Oxygen Delivery Method Room Air 07/31/25 10:51 BMI result Body Mass Index 41.4 Tobacco/Smoking Status: Tobacco use Status Tobacco use date assessed 07/31/25 07/31/25 10:53 Patient Tobacco Use Status Never used Tobacco 07/31/25 10:53 e-Cigarette/Vaping Use Never Used 07/31/25 10:53 Thrive Assessment: Date of Thrive Assessment Date Thrive assessed 03/06/25 07/31/25 10:53 Const General: no acute distress Resp Effort & Inspection: normal respiratory effort Auscultation: clear to auscultation bilaterally Cardio Rhythm: regular rhythm Heart sounds: S1 normal heart sound present and S2 normal heart sound present Extrem Other: 4+ nonpitting edema chronic lymphedema and chronic venous stasis changes on both lower extremities, there is a tenderness left calf more than right, no warmth, there is no groin tenderness to palpations. There is decreased range of motion of the left hip Coding Level of Care Code Est Pt Level 4 (81817) Diagnoses DVT (deep venous thrombosis) I82.409 Hip pain, left M25.552 HTN (hypertension) I10 Assessment & Plan Assessment & Plan (1) DVT (deep venous thrombosis): Code(s): I82.409 - Acute embolism and thrombosis of unspecified deep veins of unspecified lower extremity Category: Medical Plan: Obtain venous ultrasound of left lower extremity rule out DVT (2) Hip pain, left: Code(s): M25.552 - Pain in left hip Category: Medical Plan: Obtain x-ray of left hip and meloxicam 15 mg daily for 10 days is prescribed (3) HTN (hypertension): Code(s): I10 - Essential (primary) hypertension Category: Medical Plan: Continue current medications Orders: Orders US venous duplex LE LT Today I82.409 - Acute embolism and thrombosis of unspec ified deep veins of unspecified lower extremity XR hip LT min 2V Today M25.552 - Pain in left hip Medications: New meloxicam 15 mg PO DAILY 14 tabs 0RF
[2025-07-31 10:51] VITALS: BP 150/62; PULSE 86; TEMP 36.8; O2SAT 96; BMI 41.4
[2025-07-31 10:53] VITALS: BP 128/62
== END 2025-07-31 11:24 | disposition home or self-care (01) ==
LOC: HO.HMCC 10:48
PROVIDERS: PCP Internal Medicine; Visit Provider Internal Medicine
DX: I82.409 Acute embolism and thrombosis of unspecified deep veins of unspecified lower extremity (principal); M25.552 Pain in left hip; I10 Essential (primary) hypertension

== ENCOUNTER 2025-07-31 11:23 | Outpatient (REF) | payer OTHER, SELFPAY ==
--- NOTE | ~2025-07-31 | XR_ITS ---
EXAMINATION: XR HIP, LEFT CLINICAL INFORMATION: M25.552 - Pain in left hip COMPARISON: Correlated to CT abdomen pelvis dated April 19, 2024. TECHNIQUE: AP and oblique views of the left hip. FINDINGS: Limited by patient's body habitus. There is a metallic prosthesis with an acetabular and femoral component well-seated in the osseous structures. No gross malalignment. No gross loosening. Vascular clips in the inguinal scrotal region suggesting prior vasectomy. XR/XR hip LT min 2V IMPRESSION: Total left hip arthroplasty prosthesis, intact. Stable. Electronically signed by: Jose Soler MD 07/31/2025 12:04 PM EST
--- NOTE | ~2025-07-31 | US_ITS ---
EXAMINATION: US TRIPLEX LOWER EXTREMITY, LEFT CLINICAL INFORMATION: Edema, left lower extremity. COMPARISON: September 16, 2020. TECHNIQUE: Color-flow triplex imaging with spectral analysis and compression Doppler were performed on the left lower extremity. FINDINGS: Respiratory variation, normal compression and augmented flow are demonstrated in the interrogated left common femoral vein, superficial femoral vein, profunda femoral vein, popliteal vein and midcalf peroneal and posterior tibial venous segments.. There is no Thomas's cyst. Edema pattern, soft tissues. Nonspecific prominent lymph nodes. US/US venous duplex LE IMPRESSION: No acute deep venous thrombosis interrogated veins, left lower extremity. Negative for DVT. Electronically signed by: Jose Soler MD 07/31/2025 12:10 PM MARYSE
== END 2025-07-31 11:24 | disposition home or self-care (01) ==
LOC: HO.HMGCX 11:23
PROVIDERS: PCP Internal Medicine; Visit Provider Internal Medicine
DX: M25.552 Pain in left hip (principal); I10 Essential (primary) hypertension; E78.5 Hyperlipidemia, unspecified; I82.402 Acute embolism and thrombosis of unspecified deep veins of left lower extremity
CPT/HCPCS: 73502; 93971

== ENCOUNTER → 2025-07-31 11:27 | Outpatient (BNV) | payer OTHER, SELFPAY | PROVIDERS: PCP Internal Medicine; Visit Provider Radiology Diagnostic Radiology | DX: R60.0 Localized edema (principal); M25.552 Pain in left hip; Z96.642 Presence of left artificial hip joint | CPT/HCPCS: 73502; 93971 ==

== ENCOUNTER 2025-09-08 09:48 | Outpatient (AMB) | payer OTHER, SELFPAY ==
[2025-09-08 09:55] VITALS: BP 134/66; PULSE 70; RESP 19; TEMP 36.5; O2SAT 96; BMI 44.5
--- NOTE | 2025-09-08 09:55 | A.OFFPC_ITS ---
Vital Signs 09/08/25 09:55 Height 6 ft Weight 328 lb BMI 44.5 BP 134/66 Blood Pressure Location Lt brachial Position Sitting Respiration 19 Pulse 70 Pulse Source Pulse Oximeter Temp 97.7 F Temp Source Oral Pulse Oximetry (%) 96 Oxygen Delivery Method Room Air Intake Visit Reasons: 6m f/u Intake Note: Pt is here today for 6 months follow up visit. Allergies Sulfa (Sulfonamide Antibiotics) Allergy (Unknown, Verified 09/08/25 09:56) unknown paper tape Allergy (Mild, Uncoded 09/08/25 09:56) Rash Medication List - Last Reconciled 09/08/25 by Suzie Thomas MD aspirin (Adult Low Dose Aspirin) 81 mg PO DAILY atorvastatin 10 mg PO DAILY cephalexin PO finasteride 5 mg PO DAILY hydrochlorothiazide 25 mg PO DAILY losartan 50 mg PO DAILY nystatin 1 appl topical BID tadalafil 5 mg PO DAILY Tobacco use date assessed: 09/08/25 Fall risk assessment: 1 Fall in past year Last assessed Fall Risk: 09/08/25 Dental Screening Dental Screen Date: 03/06/25 HPI 6m f/u HPI Details Patient presents for the follow-up. he complains of worsening lower extremity edema and gained 20 lb in the last month. Patient was seen by senior gamemaster who prescribed him antibiotic without significant improvement of skin discoloration on the lower extremities. Patient is established with vascular surgeon Aravind who prescribed him veno boots that he has been using daily for 40 minutes. Patient was also referred to lymphedema clinic at [facility] and is waiting for an appointment. He denies PND orthopnea dyspnea on exertion chest pain palpitations. [facility] Medical History (Updated 09/08/25 @ 11:00 by Suzie Thomas MD) Foot pain, bilateral Abnormal colonoscopy Hyperlipidemia Annual physical exam Dysuria Urethral stricture Recurrent UTI Obese HTN (hypertension) Lymphedema Venous insufficiency of both lower extremities Surgical History History of left hip replacement History of right hip replacement Family History Father Prostate cancer Mother HTN (hypertension) Diabetes Colon cancer Social History Housing: Apartment Alcohol intake: never Patient Tobacco Use Status: Never used Tobacco e-Cigarette/Vaping Use: Never Used Second Hand Smoke Exposure: No service: No Current occupational status: employed Cognitive needs: No Hearing needs: No Vision needs: Yes Questionnaire Thrive Questionnaire Date Thrive assessed: 03/04/25 I am a: Patient What is your living situation today?: I have a steady place to live Within the past 12 months, did the food you bought not last and you didn't have the money to get more?: Never true Within the past 12 months, did you worry whether your food would run out before you got money to buy more?: Never true Do you have trouble paying for medicines?: No Do you have trouble getting transportation to medical appointments?: No Do you have trouble paying your heating and electricity bill?: No Do you have trouble taking care of your child, family member or friend?: No Do you have trouble with day-to-day activities such as bathing, preparing meals, shopping, managing finances, etc.?: No Are you currently unemployed and looking for a job?: No Are you interested in more education?: No Please select the resources that you would like help with: None Currently or been in a relationship where the following occur: No concerns reported THRIVE Score: 0 DARLENE-7 AMB Questionnaire DARLENE-7 Date DARLENE - 7 assessed: 03/06/25 Source: Developed by Drs. Rusty Brooks, Trish Mayorga, Puneet Reece and colleagues, with an educational keegan from [employer]. Review of Systems Const All systems reviewed & are unremarkable except as noted in HPI and below Eyes Reports no additional complaints ENT Reports no additional complaints Card Reports no additional complaints Resp Reports no additional complaints GI Reports no additional complaints Reports no additional complaints Physical exam (Primary Care) Vital Signs: Last Vital Signs Temp 97.7 F 09/08/25 09:55 Pulse 70 09/08/25 09:55 Resp 19 09/08/25 09:55 BP 134/66 09/08/25 09:55 Pulse Ox 96 09/08/25 09:55 Oxygen Delivery Method Room Air 09/08/25 09:55 BMI result Body Mass Index 44.5 Tobacco/Smoking Status: Tobacco use Status Tobacco use date assessed 09/08/25 09/08/25 09:58 Patient Tobacco Use Status Never used Tobacco 09/08/25 09:58 e-Cigarette/Vaping Use Never Used 09/08/25 09:58 Thrive Assessment: Date of Thrive Assessment Date Thrive assessed 03/04/25 09/08/25 09:58 Currently or been in a relationship where the following occur: No concerns reported Const General: no acute distress HENMT Head: Yes normal to inspection Neck Neck: Yes supple Resp Effort & Inspection: normal respiratory effort Auscultation: clear to auscultation bilaterally Cardio Rhythm: regular rhythm Heart sounds: S1 normal heart sound present and S2 normal heart sound present GI Inspection: Yes normal to inspection Palpation (GI): Soft to palpation Percussion: Yes normal to percussion Auscultation: normal bowel sounds Extrem Other: 4+ nonpitting edema chronic skin thickening and dystrophic changes on both lower extremities Coding Level of Care Code Est Pt Level 4 (97478) Diagnoses HTN (hypertension) I10 Lymphedema I89.0 CHF (congestive heart failure) I50.9 Obese E66.9 Assessment & Plan Assessment & Plan (1) HTN (hypertension): Code(s): I10 - Essential (primary) hypertension Category: Medical Plan: Continue losartan (2) Lymphedema: Comment: lower legs, f/u severe lymphedema referred to Lymphedema Clinic Code(s): I89.0 - Lymphedema, not elsewhere classified Category: Medical Plan: Try of Bumex 1 mg daily. Patient was advised to continue using veno boots lower extremity elevation and is waiting for an appointment with [facility] (3) CHF (congestive heart failure): Code(s): I50.9 - Heart failure, unspecified Category: Medical Plan: Check echocardiogram (4) Obese: Comment: BMI 44.5 08/2025 Code(s): E66.9 - Obesity, unspecified Category: Medical Plan: DECREASE CALORIC INTAKE INCREASING PHYSICAL ACTIVITY WEIGHT LOSS DISCUSSED WITH THE PATIENT, follow-up in 1 month Orders: Orders Comprehensive Orosi. Panel Fast Today I10 - Essential (primary) hypertension, I89.0 - Lymphedema, not elsewhere classified Complete Blood Count Auto Diff Today I10 - Essential (primary) hypertension, I89.0 - Lymphedema, not elsewhere classified Lipid Panel Today I10 - Essential (primary) hypertension, I89.0 - Lymphedema, not elsewhere classified PSA,Total (Free>4and<10) Today I10 - Essential (primary) hypertension, I89.0 - Lymphedema, not elsewhere classified CA echo transthoracic complete Today I50.9 - Heart failure, unspecified TSH reflex Free T4 Today I10 - Essential (primary) hypertension, I50.9 - Heart failure, unspecified NT Pro B Type Natriuretic Pept Today I10 - Essential (primary) hypertension, I50.9 - Heart failure, unspecified Medications: New bumetanide 1 mg PO DAILY 30 tabs 1RF Discontinued hydrochlorothiazide Discontinued Reason: Doctor's Order 25 mg PO DAILY 30 tabs 2RF
--- OUTSIDE RECORDS SUMMARY | 2025-09-08 11:32 | XMS_ITS | Encounter Summary ---
Author Organization [facility] Address [address] [place] [address] Care Team Providers Care Counseling Psychologist Name Role Phone Suzie Thomas MD Primary Care Provider [phone] Encounter Details Date Type Department Care Team (Late st Contact Info) Description 10/22/2024 Lab Requisition [facility] - Main Lab [address] [place] [phone] Reece [facility]ens [facility] [address] [facility] [address] [place] [phone] Dysuria; Urinary tract infection, site not specified Social History Tobacco Use Types Packs/Day Years Used Date Smoking Tobacco: Never Assessed Sex and Gender Information Value Date Recorded Sex Assigned at Male 11/04/2024 2:31 PM EST Legal Sex Male 1:49 AM EST Gender Identity Male 11/04/2024 2:31 PM EST Sexual Orientation Choose not to disclose 2024 2:32 PM EST documented as of this encounter Plan of Treatment Not on file documented as of this encounter Procedures Procedure Name Priority Date/Time Associated Diagnosis Comments CULTURE URINE Routine 10/22/2024 12:00 AM EST Dysuria Urinary tract infection, site not specified documented in this encounter Results * (ABNORMAL) Culture urine (10/22/2024 12:00 AM EST) Culture, Urine 10,000-49,000 CFU/mL Streptococcus viridans group(A) 10/24/2024 12:21 PM EST [facility] Comment: The organism value for this result has been updated. These results have been appended to the previously preliminary verified report. Urine Urine specimen obtained by clean catch procedure / Unknown 10/22/2024 10/22/2024 6:45 PM EST Narrative [facility] - 10/24/2024 12:21 PM EST Susceptibility testing not routinely performed. If further therapeutic information is required, please consult an infectious disease specialist. us Reece Bowens MD LAB MICROBIOLOGY - [facility] Final Result [facility] [address] [place] [address], documented in this encounter Visit Diagnoses Diagnosis Dysuria Urinary tract infection, site not specified documented in this encounter Care Teams Counseling Psychologist Relationship Specialty Start Date End Date Suzie Thomas MD [address] [place] [phone] PCP - General Internal Medicine 10/22/24 documented as of this encounter
--- OUTSIDE RECORDS SUMMARY | 2025-09-08 11:32 | XMS_ITS | Clinical Summary ---
Author Organization [facility] Address [address] [place] [address] Phone Care Team Providers Care Transmission Supervisor Name Role Phone Suzie Thomas MD Primary Care Provider [phone] Allergies Active Allergy Reactions Criticality Noted Date [...] Safety Answer Date Record ed Physical Abuse Unrecognized value 11/05/2024 Verbal Abuse Unrecognized value 11/05/2024 Sex and Gender Information Value Date Recorded Sex Assigned at Male 11/04/2024 2:31 PM EST Legal Sex Male 1:49 AM EST Gender Identity Male 11/04/2024 2:31 PM EST Sexual Orientation Choose not to disclose 2024 2:32 PM EST Last Filed Vital Signs Vital Sign Reading [...] 2) 2005 Cholesterol Screening (Lipid Panel) 10/17/2023 Hepatitis C Screening 10/17/2023 Social Influencers of Health Screening 10/17/2023 DTaP,Tdap,and Td Vaccines (2 - Td or Tdap) 11/09/2023 11/09/2013 Depression Screening 09/18/2024 COVID-19 Vaccine (4 - 2024-2 6 season) 2025 09/09/2021, 01/04/2021, 12/07/2020 Influenza Vaccine (#1) 2025 Falls Risk Assessment 11/05/2025 11/05/2024 RSV [...] Maintenance Results * COLONOSCOPY Anesthesia - MAC; [facility] ENDOSCOPY (11/05/2024 8:59 AM EST) Anatomical Region Laterality Modality Other 11/05/2024 8:36 AM EST Impressions 11/05/2024 9:02 AM EST - Dilated in the entire examined colon. Biopsied. - The examination was otherwise normal on direct and retroflexion views. Recommendation: - Await pathology results. - Trial Rifaximin x 2 weeks Narrative 11/05/2024 9:[address] [facility] Patient Name: Aubrey Cruz Procedure [...] retroflexion views. Procedure Code(s): --- Professional --- 49486, Colonoscopy, flexible; with biopsy, single or multiple Diagnosis Code(s): --- Professional --- Z86.010, Personal history of colonic polyps K59.39, Other megacolon CPT copyright 2020 [employer]. All rights reserved. The codes documented in this report are preliminary and upon certified professional coder review may be revised to meet current compliance requirements. Vlad Camacho MD 11/05/2024 9:02:33 AM This report has been signed electronically.Vlad Camacho MD Number of Addenda: 0 Note Initiated On: 11/05/2024 8:36 AM Scope In: Scope Out: Endoscopy Department at [facility] - [address] [place] [id number] Procedure Note Vlad Camacho MD - 11/05/2024 [facility] Patient Name: Aubrey Cruz Procedure [...] retroflexion views. Procedure Code(s): --- Professional --- 78100, Colonoscopy, flexible; with biopsy, singleor multiple Diagnosis Code(s): --- Professional --- Z86.010, Personal history of colonic polyps K59.39, Other megacolon CPT copyright 2020 [employer]. All rights reserved. The codes documented in this report are preliminary and upon certified professional coder reviewmay be revised to meet current compliance requirements. Vlad Camacho MD 11/05/2024 9:02:33 AM This report has been signed electronically.Vlad Camacho MD Number of Addenda: 0 Note Initiated On: 11/05/2024 8:36 AM Scope In: Scope Out: Endoscopy Department at [facility] - [address] [place] [phone] IMPRESSION: - Dilated in the entire examined colon. Biopsied. - The examination was otherwise normal on directand retroflexion views. Recommendation: - Await pathology results. - Trial Rifaximin x 2 weeks Vlad Camacho MD GI~PROCEDURE ORDERABLES Fin al Result from Last 3 Months or Most Recently Relevant to Health Maintenance Insurance [facility] [address] [place] [address] Care Teams Transmission Supervisor Relationship Specialty Start Date End Date Suzie Thomas MD [address] [facility] [place] [phone] PCP - General Internal Medicine 10/22/24
== END 2025-09-08 11:02 | disposition home or self-care (01) ==
LOC: HO.HMCC 09:49
PROVIDERS: PCP Internal Medicine; Visit Provider Internal Medicine
DX: I11.0 Hypertensive heart disease with heart failure (principal); I50.9 Heart failure, unspecified; Z68.41 Body mass index [BMI] 40.0-44.9, adult; E66.9 Obesity, unspecified; I89.0 Lymphedema, not elsewhere classified

== ENCOUNTER 2025-09-08 09:48 | Outpatient (REF) | payer OTHER, SELFPAY ==
[2025-09-08 13:41] LABS: MANUAL DIFF FLAG NO
[2025-09-08 13:54] LABS: Hematocrit 41.2 % (42.0-52.0); Hemoglobin 12.9 g/dl (14.0-18.0); Imm Gran Abs Auto 0.03 X10*3/uL (0.00-0.03); Imm Gran Pct Auto 0.5 % (0.0-0.4); Lymphocytes Absolute Auto 1.0 X10*3/uL (1.2-4.9); Mean Corpuscular HGB Conc 31.3 g/dl (31.0-36.0); Mean Corpuscular Hemoglobin 30.2 pg (27.0-33.0); Mean Corpuscular Volume 96.5 fL (80.0-98.0); NRBC Abs Auto 0.000 X10*3/uL (0.0-0.012); NRBC Pct Auto 0.0 /100WBC (0.0-0.2); Platelet Count 194 X10*3/uL (160-400); Red Blood Count 4.27 X10*6/uL (4.60-5.80); White Blood Count 5.6 X10*3/uL (4.8-10.8)
[2025-09-08 14:42] LABS: NT Pro B Type Natriuretic Pept 270.7 pg/mL (<300)
[2025-09-08 15:09] LABS: PSA,Total (Free>4and<10) 5.10 ng/mL (0.00-4.00)
[2025-09-08 16:41] LABS: Alanine Aminotransferase 28 U/L (0-40); Albumin Level 3.9 g/dL (3.5-5.0); Alkaline Phosphatase 95 U/L (39-117); Anion Gap 11 (12-20); Aspartate Amino Transferase 34 U/L (5-37); Blood Urea Nitrogen 15 mg/dL (9-16); Calcium 8.6 mg/dL (8.4-10.2); Carbon Dioxide 29 mmol/L (22-29); Chloride 107 mmol/L (96-108); Cholesterol 118 mg/dL (<200); Estimated Glomerular Filt Rate > 60; HDL Cholesterol 49 mg/dL (>40); Potassium 4.0 mmol/L (3.3-5.1); Sodium 143 mmol/L (135-145); Total Protein 6.6 g/dL (6.5-8.0); Triglycerides 32 mg/dL (<150)
[2025-09-10 12:58] LABS: Free Prostate Spec Ag 0.6 ng/mL; Percent Free Prostate Spec Ag 13 % (calc) (>25)
== END 2025-09-08 09:49 | disposition home or self-care (01) ==
LOC: HO.HMGCLDS 09:48
PROVIDERS: PCP Internal Medicine; Visit Provider Internal Medicine
DX: Z12.5 Encounter for screening for malignant neoplasm of prostate (principal); I89.0 Lymphedema, not elsewhere classified; I11.0 Hypertensive heart disease with heart failure; I50.9 Heart failure, unspecified; E66.9 Obesity, unspecified; Z68.41 Body mass index [BMI] 40.0-44.9, adult; Z71.3 Dietary counseling and surveillance
CPT/HCPCS: 36415; 80053; 80061; 83880; 84153; 84154; 84443; 85025